=== PATIENT | female | born 1965 | race Caucasian/White ===

== ENCOUNTER 2024-12-14 08:13 | Emergency (ER) | payer OTHER, SELFPAY ==
--- OUTSIDE RECORDS SUMMARY | 2024-11-12 09:00 | XMS_ITS | Encounter Summary ---
Author Organization [place] Address [address] [place] [address] Care Team Providers Care Gas Meter Checker Name Role Phone Lashell Aparicio MD Primary Care Provider [phone] Lashell Aparicio MD Unavailable [phone] Kodi Moody MD Unavailable [phone] Kodi Moody MD Unavailable [phone] Encounter Details Date Type Department Care Team (Late st Contact Info) Description 11/12/2024 9:00 AM [facility] [address] [place] [phone] Hypothyroidism, unspecified type Social History Tobacco Use Types Packs/Day Years Used Date Smoking Tobacco: Former Cigarettes 1.5 35 0 07/28/1984 - 07/27/2019 Smokeless Tobacco: Never Alcohol Use Standard Drinks/Week Comments No 0 (1 standard drink = 0.6 oz pur e alcohol) stopped approx 01/2015 Social Connection and Isolat ion Panel [NHANES] Answer Date Recorded Frequency of Communication w ith Friends and Family Not on file 04/14/2024 How often do you get togethe r with friends or relatives? More than three times a week 04/14/2024 Attends Faith Services Not on file 04/14 Active Member of Clubs or Organizations Not on f ile 04/14/2024 Attends Club or Organization Meetings Not on tiffany e 04/14/2024 Marital Status Not on file 04/14/2024 AUDIT-C Answer Date Recorded Q1: How often do you have a drink containing alc ohol? Monthly or less 04/27/2023 Q2: How many drinks containi ng alcohol do you have on a typical day when you are drinking? 1 or 2 04/27/2023 Q3: How often do you have si x or more drinks on one occasion? Less than monthly 04/27/2023 PHQ-2 Answer Date Recorded PHQ-2 Score 2 04/14/2024 [facility] - Occupational Stress Questionnaire Answer Date Recorded Do you feel stress - tense, restless, nervous, or anxious, or unable to sleep at night because your mind is troubled all the time - these days? Rather much 04/14/2024 Exercise Vital Sign Answer Date Recorde d On average, how many days pe r week do you engage in moderate to strenuous exercise (like a brisk walk)? 0 days 04/14/2024 On average, how many minutes do you engage in exercise at this level? 0 min 04/14/2024 Adolescent Education Answer Date Record ed Getting School Help Needed Not on file 04/26 Food Insecurity Answer Date Recorded Within the past 12 months, d id you worry that your food would run out before you got money to buy more? No 04/14/2024 Within the past 12 months, d id the food you bought just not last and you didn t have money to get more? No 04/14/2024 Housing Stability Answer Date Recorded Do you have housing? (Housin g is defined as stable permanent housing and does not include staying outside in a car, in a tent, in an abandoned building, in an overnight nursing home, or couch-surfing.) Yes 04/14/2024 Are you worried about losing your housing? No 04/14/2024 Financial Resource Strain Answer Date R ecorded Within the past 12 months, h ave you or your family members you live with been unable to get utilities (heat, electricity) when it was really needed? No 04/14/2024 Transportation Needs Answer Date Record ed Within the past 12 months, h as lack of transportation kept you from medical appointments, getting your medicines, non-medical meetings or appointments, work, or from getting things that you need? No 04/14/2024 Interpersonal Safety Answer Date Record ed Do you feel physically and e motionally safe where you currently live? Yes 04/14/2024 Within the past 12 months, h ave you been hit, slapped, kicked or otherwise physically hurt by someone? No 04/14/2024 Within the past 12 months, h ave you been humiliated or emotionally abused in other ways by your partner or ex-partner? 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 Not on file Not on file documented as of this encounter Plan of Treatment Upcoming Encounters Date Type Department Care Team (Late st Contact Info) Description 04/18/2025 4:30 PM CDT Office Visit [facility] [id number] [place] [phone] [place] [id number] [place] [phone] documented as of this encounter Procedures Procedure Name Priority Date/Time Associated Diagnosis Comments TSH Routine 11/12/2024 9:04 AM CDT Hypothyroidism, unspecified type documented in this encounter Results * TSH (11/12/2024 9:04 AM CDT) TSH 2.52 0.30 - 4.20 uIU/mL 11/12/2024 6:46 PM CDT [facility] Blood BLOOD SPECIMEN / Unknown Venipuncture / Unknown 11/12/2024 9:04 AM CDT 11/12/2024 9:04 AM CDT us Lashell Aparicio MD LAB - BLOOD ORDERABLES Final Re sult [facility] [address] [facility] [address], [address] [place] [address] documented in this encounter Visit Diagnoses Diagnosis Hypothyroidism, unspecified type documented in this encounter Additional Health Concerns Assessment Noted Time PHQ-9 Depression Total Score: 9 04/14/20 24 7:49 AM CDT documented as of this encounter Care Teams Gas Meter Checker Relationship Specialty Start [place] [address] [place] [address] PCP - General 11/04/03 [place] [address] [place] [address] Assigned PCP 11/20/14 Kodi Moody MD [address] [address] Cardiovascular Disease 09/25/23 Kodi Moody MD [address] [address] Assigned Heart and Vascular Provider 11/18/23 documented as of this encounter
[2024-12-14 08:29] VITALS: BP 144/82; PULSE 77; RESP 18; TEMP 36.7; O2SAT 94; BMI 42.6
--- NOTE | 2024-12-14 08:31 | ED.WOUNDLAC ---
HPI - Wound/Laceration General Time Seen by Provider: 08:31 Date Seen: 12/14/24 Chief Complaint: Laceration/Wound Stated Complaint: L small finger injury at work Time Seen by Provider: 12/14/24 08:31 Source: patient and RN notes reviewed Mode of arrival: ambulatory Limitations: no limitations History of Present Illness HPI narrative: This 59-year-old female is coming into work from a work comp injury. She accidentally cut her left 5th finger with a ordering box operator at work just prior to arrival. It did bleed but bleeding has been controlled. She denies any numbness or tingling. Her tetanus is up-to-date. Nursing staff did check and she does not need tetanus immunization. This happened just prior to arrival. Place: work Patient tetanus UTD: Yes Context: accidental Related Data Home Medications ?Medication ?Instructions ?Recorded ?Confirmed aspirin 81 mg tablet 81 mg PO DAILY 12/14/24 12/14/24 cyanocobalamin (vitamin B-12) mcg 12/14/24 1,000 mcg/mL injection solution duloxetine 60 mg capsule,delayed 60 mg PO DAILY 12/14/24 12/14/24 release estradiol 0.5 mg tablet 0.5 mg PO DAILY 12/14/24 12/14/24 gabapentin 300 mg capsule 300 mg PO 3XD 12/14/24 12/14/24 levothyroxine 50 mcg tablet 50 mcg PO DAILY 12/14/24 12/14/24 (Synthroid) rosuvastatin 20 mg tablet 20 mg PO QPM 12/14/24 12/14/24 trazodone 150 mg tablet mg PO 12/14/24 Allergies Allergy/AdvReac Type Severity Reaction Status Date / Time No Known Drug Allergies Allergy Verified 12/14/24 08:31 Review of Systems Narrative: As per HPI. Exam Const: Vital Signs, click to edit/add: Vital Signs - 24 hr 12/14/24 08:29 Temperature 98.1 F Pulse Rate [Pulse Oximeter] 77 Respiratory Rate 18 Blood Pressure [Ri ght Upper Arm] 144/82 H Pulse Oximetry 94 Oxygen Delivery Me thod Room Air This 59-year-old female is alert, interactive, no apparent distress. Seen in exam room 1. She has her hand in a glove and the left 5th finger wrapped, this was removed. There is a flap-type laceration overlying the PIP joint of her left 5th finger. She has distal sensation that is intact, normal cap refill. She has full flexion-extension could. She has normal resisted flexion and extension throughout the finger. No loss of motor movement. Wound does gape open with flexion as it is on the dorsal surface. It is curvilinear, about 1 cm. Wound was anesthetize with about 2 mL of 0.25% bupivacaine, total of 3 mL was drawn up. After anesthesia was established, wound was inspected, it is just into the subcutaneous tissue, does not go deeper, no tendon or ligament involvement, no joint capsule penetration. Wound was cleaned with wound cleanser. Standard sterile technique was observed, wound was closed using 5 simple interrupted sutures of 4-0 Ethilon. Patient tolerated this well, no immediate complications, no significant blood loss. Documenting provider has reviewed patient's vital signs: yes Course Course ED Course: Wound was cleaned, inspected and repaired, see above. Vital Signs Vital signs: Initial Vital Signs Temperature 98.1 F 12/14/24 08:29 Temperature Source Temporal Artery Scan 12/14/24 08:29 Pulse Rate 77 12/14/24 08:29 Respiratory Rate 18 12/14/24 08:29 Blood Pressure 144/82 H 12/14/24 08:29 Blood Pressure Mean 102 12/14/24 08:29 Pulse Oximetry 94 12/14/24 08:29 Oxygen Delivery Method Room Air 12/14/24 08:29 Vital Signs Temperature 98.1 F 12/14/24 08:29 Pulse Rate 77 12/14/24 08:29 Respiratory Rate 18 12/14/24 08:29 Blood Pressure 144/82 H 12/14/24 08:29 Pulse Oximetry 94 12/14/24 08:29 Oxygen Delivery Method Room Air 12/14/24 08:29 Temperature 98.1 F 12/14/24 08:29 Pulse Rate 77 12/14/24 08:29 Respiratory Rate 18 12/14/24 08:29 Blood Pressure 144/82 H 12/14/24 08:29 Pulse Oximetry 94 12/14/24 08:29 Oxygen Delivery Method Room Air 12/14/24 08:29 Discharge Plan Discharge Clinical Impression: Finger laceration Qualifiers: Encounter type: initial encounter Finger: little finger Damage to nail status: without damage Foreign body presence: without foreign body Laterality: left Qualified Code(s): S61.217A - Laceration without foreign body of left little finger without damage to nail, initial encounter Patient Disposition: Home, Self-Care Condition: Stable Instructions: Finger Laceration (ED) Additional Instructions: Can remove initial bandaging tonight. Can use splint to help keep finger straight for at least the next few days, this will help take tension off the wound. When able to, can elevate and ice for swelling. Can use Tylenol and ibuprofen per bottle directions as needed for pain management. May wash your hands and shower but should otherwise keep this wound clean and dry until suture removal. Need to schedule a clinic follow-up or can return to Urgent Care potentially to assess wound for suture removal in about 10 days. If there is concern for infection, please seek re-evaluation. Can use bandages and bacitracin for dressing of this wound. Change bandages at least twice a day or more often if needed. Work medical status report filled out and completed. Activity Level: Activity as Tolerated Prescriptions: No Action levothyroxine [Synthroid] 50 mcg tablet 50 mcg PO DAILY cyanocobalamin (vitamin B-12) 1,000 mcg/mL solution Patient Comments: [NO ORIGINAL SIG] trazodone 150 mg tablet PO gabapentin 300 mg capsule 300 mg PO 3XD estradiol 0.5 mg tablet 0.5 mg PO DAILY rosuvastatin 20 mg tablet 20 mg PO QPM duloxetine 60 mg capsule,delayed release(DR/EC) 60 mg PO DAILY aspirin 81 mg tablet 81 mg PO DAILY Stand Alone Forms: [employer] Info Instructions
--- OUTSIDE RECORDS SUMMARY | 2024-12-14 09:31 | XMS_ITS | Clinical Summary ---
Author Organization [facility] Address [address] [place] [address] Care Team Providers Care Associate Project Manager Name Role Phone Pcp, No Primary Care Provider Unavailabl e Allergies No known active allergies Medications diltiazem CD (CARDIZEM CD) 240 mg extended release 24 hr capsule Take 1 capsule by mouth once daily. 0 06/16/2017 Active sertraline (ZOLOFT) 100 mg tablet Take 1 tablet by mouth once daily. 0 06/16/2017 Active traZODone (DESYREL) 150 mg tablet Take 1 tablet by mouth at bedtime. 0 06/16/2017 Active levothyroxine (SYNTHROID) 25 mcg tablet Take 1 tablet by mouth before breakfast. 0 06/16/2017 Active gabapentin (NEURONTIN) 300 mg capsule TAKE 3 CAPS BY MOUTH 3XDAILY INCREASE BY 1 CAP(300 MG) EVERY 5 DAYS TO A GOAL DOSE OF 900MG 3XDAILY. 02/05/2020 Active Active Problems Problem Noted Date Diagnosed Date Hyperopia of both eyes with astigmatism and pres byopia 03/01/2020 Social History Tobacco Use Types Packs/Day Years Used Date Smoking Tobacco: Every Day Cigarettes Alcohol Use Standard Drinks/Week Comments Not Asked 0 (1 standard drink = 0.6 oz pur e alcohol) Comments No Sex and Gender Information Value Date Recorded Sex Assigned at Not on file Legal Sex Female 7:03 AM DISC RULER OPERATOR Gender Identity Not on file Sexual Orientation Not on file Obstetrics History Last Filed Vital Signs Vital Sign Reading Time Taken Comments Blood Pressure 113/67 06/16/2017 8:33 AM DISC RULER OPERATOR Pulse 75 06/16/2017 8:33 AM DISC RULER OPERATOR Temperature - - Respiratory Rate - - Oxygen Saturation - - Inhaled Oxygen Concentration - - Weight - - Height - - Body Mass Index - - Plan of Treatment Health Maintenance Due Date Last Done Comments Tdap 1978 Depression screening for age 12+ 1979 HIV for age 15-65 1982 BMI (ht and wt on same day) for age 18+ 1985 Hepatitis C screening for age 18-79 1985 Tetanus booster 1987 Pap test for age 21-65 1988 Colonoscopy through age 75 2012 Lipids for age 45-75 2012 Mammogram for age 45-75 2012 Pneumococcal series for age 50+ (1 of 1 - PCV) 2017 Zoster (shingles) series for age 50+ (1 of 2) 2017 COVID-19 vaccine series ( season) 2024 04/30/2023, 11/11/2020, 10/21/2020 Influenza Vaccine (Season Ended) 2025 Insurance [facility] Care Teams Associate Project Manager Relationship Specialty Start Date End Date Pcp, No . PCP - General 03/19/11
--- OUTSIDE RECORDS SUMMARY | 2024-12-14 09:32 | XMS_ITS | Encounter Summary ---
Author Organization [place] Address [address] [place] [address] Care Team Providers Care Community Organization Worker Name Role Phone Lashell Aparicio MD Primary Care Provider [phone] Lashell Aparicio MD Unavailable [phone] Kodi Moody MD Unavailable Kodi Moody MD Unavailable [phone] Donita Freire LIQUOR RECTIFIER Unavailable [phone] Encounter Details Date Type Department Care Team (Late st Contact Info) Description 05/14/[address] [facility] Medical Advice [facility] [address] [phone] Nabila Mason, RN Social History Tobacco Use Types Packs/Day Years [...] than three times a week 04/14/2024 Attends Jainism Services Not on file 04/14 Active Member [...] Answer Date Recorded PHQ-2 Score 2 04/14/2024 [facility] - Occupational Stress Questionnaire Answer Date Recorded [...] Answer Date Recorded Do you have housing? 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 [address] [place] [phone] [place] [id number] [place] [address] [phone] documented as of this encounter Visit Diagnoses Not on filedocumented in this encounter Additional Health Concerns Assessment Noted Time PHQ-9 Depression Total Score: 9 04/14/20 24 7:49 AM CDT documented as of this encounter Care Teams Community Organization Worker Relationship Specialty Start Date [place] [address] [place] [address] PCP - General 11/04/03 [place] [address] [place] [address] Assigned PCP 11/20/14 Kodi Moody MD [address] [address] Cardiovascular Disease 09/25/23 Kodi Moody MD [address] [address] Assigned Heart and Vascular Provider 11/18/23 Donita Freire, [facility] [address] [facility] [place] [address] Assigned Behavioral Health Provider 11/18/23 09/18/24 documented as of this encounter
--- OUTSIDE RECORDS SUMMARY | 2024-12-14 09:32 | XMS_ITS | Encounter Summary ---
Author Organization [facility] Address [address] [place] [address] Care Team Providers Care Trucking Contractor Name Role Phone Lashell Aparicio MD Primary Care Provider [phone] Lashell Aparicio MD Unavailable [phone] Brittany Gibbons RN Unavailable Unavailable Hardik Beckham DPM Unavailable [phone] Izabela Cody RN Unavailable Unavailable Hardik Beckham DPM Unavailable [phone] Carmen Kauffman MD Unavailable Anabelle Ram RN Unavailable Unavailable Kodi Moody MD Unavailable [phone] Kodi Moody MD Unavailable [phone] Donita FreireSW Unavailable [phone] Encounter Details Date Type Department Care Team (Late st Contact Info) Description 01/19/2020 [facility] Medical Advice [address] [phone] Brittany Gibbons, RN Social History Tobacco Use Types Packs/Day Years Used Date Smoking Tobacco: Every Day Cigarettes 0.3 18 Smokeless Tobacco: Never Comments:started in 1985 - d own to 4 daily Alcohol Use Standard Drinks/Week Comments No 0 (1 standard drink = 0.6 oz pur e alcohol) stopped approx 01/2015 PHQ-2 Answer Date Recorded PHQ-2 Score 2 01/21/2020 Comments No Sex and Gender Information Value Date Recorded Sex Assigned at Female 06/26/2021 10:10 AM VISUAL COORDINATOR Legal Sex Female 3:45 AM VISUAL COORDINATOR Gender Identity Female 06/26/2021 10:10 AM VISUAL COORDINATOR Sexual Orientation Straight 06/26/2021 10 :10 AM VISUAL COORDINATOR 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 No / Unsure 01/21/2020 1:50 PM CDT documented as of this encounter Plan of Treatment Upcoming Encounters Date Type Department Care Team (Late st Contact Info) Description 04/18/2025 4:30 PM CDT Office Visit [facility] [address] [place] [phone] [place] [id number] [place] [address] documented as of this encounter Visit Diagnoses Not on filedocumented in this encounter Additional Health Concerns Assessment Noted Time PHQ-9 Depression Total Score: 19 020 9:01 AM CDT documented as of this encounter Care Teams Trucking Contractor Relationship Specialty Start Date [place] [id number] [place] [address] PCP - General 11/04/03 Lashell Aparicio [place] [id number] [place] [address] Assigned PCP 11/20/14 Brittany Gibbons, [place] Personal Advocate & Liaison (PAL) Nurse 11/29/20 08/02/21 Hardik Beckham DPM [address] [address] Assigned Musculoskeletal Provider 07/08/21 08/30/22 Izabela Cody, RN Personal Advocate & Liaison (PAL) Family Medicine 04/12/22 09/23/23 Hardik Beckham DPM [address] [facility] [address] [place] [address] Assigned Surgical Provider 08/31/22 12/27/22 Carmen Kauffman MD ORTHOPAEDIC SURGERY [address] [place] [address] Assigned Musculoskeletal Provider 09/07/22 03/18/24 Anabelle Ram RN Personal Advocate & Liaison (PAL) Nurse 09/24/23 11/25/23 Kodi Moody MD [address] [address] Cardiovascular Disease 09/25/23 Kodi Moody MD [address] [address] Assigned Heart and Vascular Provider 11/18/23 Donita Freire, [facility] [address] [place] [address] Assigned Behavioral Health Provider 11/18/23 09/18/24 documented as of this encounter
--- OUTSIDE RECORDS SUMMARY | 2024-12-14 09:32 | XMS_ITS | Encounter Summary ---
Author Organization [place] Address [address] [place] [address] Care Team Providers Care Frame Maker Name Role Phone Lashell Aparicio MD Primary Care Provider [phone] Lashell Aparicio MD Unavailable [phone] Brittany Gibbons RN Unavailable Unavailable Hardik Beckham DPM Unavailable [phone] Izabela Cody RN Unavailable Unavailable Hardik Beckham DPM Unavailable [phone] Carmen Kauffman MD Unavailable Anabelle Ram RN Unavailable Unavailable Kodi Moody MD Unavailable Kodi Moody MD Unavailable [phone] Donita FreireSW Unavailable [phone] Encounter Details Date Type Department Care Team (Latest Contact Info) Description 10/27/2019 Historic Results Social History Tobacco Use Types Packs/Day Years Used Date Smoking Tobacco: Every Day Cigarettes 0.3 18 Smokeless Tobacco: Never Comments:started in 1985 - d own to 4 daily Alcohol Use Standard Drinks/Week Comments No 0 (1 standard drink = 0.6 oz pur e alcohol) stopped approx 01/2015 PHQ-2 Answer Date Recorded PHQ-2 Score 5 10/27/2019 Comments No Sex and Gender Information Value Date Recorded Sex Assigned at Female 06/26/2021 10:10 AM STORE LOSS PREVENTION MANAGER Legal Sex Female 3:45 AM STORE LOSS PREVENTION MANAGER Gender Identity Female 06/26/2021 10:10 AM STORE LOSS PREVENTION MANAGER Sexual Orientation Straight 06/26/2021 10 :10 AM STORE LOSS PREVENTION MANAGER 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 No / Unsure 10/27/2019 8:55 AM CDT documented as of this encounter Plan of Treatment Upcoming Encounters Date Type Department Care Team (Late st Contact Info) Description 04/18/2025 4:30 PM CDT [facility] [address] [place] [phone] Lashell [place]paricio [place] [id number] [place] [address] documented as of this encounter Visit Diagnoses Not on filedocumented in this encounter Additional Health Concerns Assessment Noted Time PHQ-9 Depression Total Score: 19 020 9:01 AM CDT documented as of this encounter Care Teams Frame Maker Relationship Specialty Start Date End Date [place]hell [place] [id number] [place] [address] PCP - General 11/04/03 [place] [address] [place] [address] Assigned PCP 11/20/14 Brittany Gibbons RN Personal Advocate & Liaison (PAL) Nurse 11/29/20 08/02/21 Hardik Beckham DPM [address] [facility] [address] [place] [address] Assigned Musculoskeletal Provider 07/08/21 08/30/22 Izabela Cody RN Personal Advocate & Liaison (PAL) Family Medicine 04/12/22 09/23/23 Hardik Beckham DPM [address] [facility] [address] [place] [address] Assigned Surgical Provider 08/31/22 12/27/22 Carmen Kauffman MD ORTHOPAEDIC SURGERY [address] [id number] Assigned Musculoskeletal Provider 09/07/22 03/18/24 Anabelle Ram RN Personal Advocate & Liaison (PAL) Nurse 09/24/23 11/25/23 Kodi Moody MD [address] [address] Cardiovascular Disease 09/25/23 Kodi Moody MD [address] [address] Assigned Heart and Vascular Provider 11/18/23 Donita Freire, [facility] [address] [place] [address] Assigned Behavioral Health Provider 11/18/23 09/18/24 documented as of this encounter
--- OUTSIDE RECORDS SUMMARY | 2024-12-14 09:32 | XMS_ITS | Encounter Summary ---
Author Organization [place] Address [address] [place] [address] Care Team Providers Care Histopath Tech Name Role Phone Lashell Aparicio MD Primary Care Provider Lashell Aparicio MD Unavailable [phone] Carmen Kauffman MD Unavailable Anabelle Ram RN Unavailable Unavailable Kodi Moody MD Unavailable [phone] Kodi Moody MD Unavailable [phone] Donita Freire Unavailable Reason for Visit * Reason Onset Date Comments Call to schedule test 11/10/2023 Exercise S tress Echocardiogram Encounter Details Date Type Department Care Team (Late st Contact Info) Description 11/10/2023 Telephone [facility] [address] [place] [address] Kodi Moody MD [address] [facility] [place] [id number] Call to schedule test (Exercise Stress Echocardiogram) Social History Tobacco Use Types Packs/Day Years [...] than three times a week 04/14/2024 Attends Sikhism Services Not on file 04/14 Active Member [...] Answer Date Recorded PHQ-2 Score 2 04/14/2024 [facility] - Occupational Stress [...] in an abandoned building, in an overnight custodial, or couch-surfing.) Yes 04/14/2024 Are you worried [...] Sex Assigned at Female 06/26/2021 10:10 AM OIL PUMPER Legal Sex Female 3:45 AM OIL PUMPER Gender Identity Female 06/26/2021 10:10 AM OIL PUMPER Sexual Orientation Straight 06/26/2021 10 :10 AM OIL PUMPER 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 Please call patient back to further coordinate. Action Taken: Other: Cardiology Travel Screening: Not Applicable Thank you! [facility] documented in this encounter Plan of Treatment Upcoming Encounters Date Type Department Care Team (Late st Contact Info) Description 04/18/2025 4:30 PM CDT Office Visit [facility] [id number] [place] [phone] Lashell Aparicio MD [address] [place] [address] documented as of this encounter Visit Diagnoses Not on filedocumented in this encounter Additional Health Concerns Assessment Noted Time PHQ-9 Depression Total Score: 5 03/02/20 23 7:28 PM CDT documented as of this encounter Care Teams Histopath Tech Relationship Specialty Start [place] [address] [place], [place] [phone] PCP - General 11/04/03 [place] [address] [place], [place] [phone] Assigned PCP 11/20/14 Carmen Kauffman MD ORTHOPAEDIC SURGERY [address] [place] [address] Assigned Musculoskeletal Provider 09/07/22 03/18/24 YoAnabelle RN Personal Advocate & Liaison (PAL) Nurse 09/24/23 11/25/23 Kodi Moody MD [address] [address] Cardiovascular Disease 09/25/23 Kodi Moody MD [address] [address] Assigned Heart and Vascular Provider 11/18/23 Donita Freire [facility] [address] [place] [address] Assigned Behavioral Health Provider 11/18/23 09/18/24 documented as of this encounter
--- OUTSIDE RECORDS SUMMARY | 2024-12-14 09:32 | XMS_ITS | Encounter Summary ---
Author Organization [place] Address [address] [place] [address] Care Team Providers Care Bricklayer Supervisor Name Role Phone Lashell Aparicio MD Primary Care Provider [phone] Lashell Aparicio MD Unavailable [phone] Carmen Kauffman MD Unavailable Kodi Moody MD Unavailable [phone] Kodi Moody MD Unavailable [phone] Donita FreireSW Unavailable [phone] Encounter Details Date Type Department Care Team (Late st Contact Info) Description 01/05/2024 [facility] Medical Advice [address] [address] Arleen Su CMA Social History Tobacco Use Types Packs/Day Years Used Date Smoking Tobacco: Former Cigarettes 1.5 35 0 07/28/1984 - 07/27/2019 Smokeless Tobacco: Never Alcohol Use Standard Drinks/Week Comments No 0 (1 standard drink = 0.6 oz pur e alcohol) stopped approx 01/2015 Social Connection and Isolat ion Panel [NHANES] Answer Date Recorded In a typical week, how many times do you talk on the phone with family, friends, or neighbors? Three times a week 04/27/2023 How often do you get togethe r with friends or relatives? More than three times a week 04/27/2023 How often do you attend [facility] or yarsani services? Never 04/27/2023 Do you belong to any clubs o r organizations such as orthodoxy groups, unions, fraternal or athletic groups, or school groups? No 04/27/2023 How often do you attend meet ings of the clubs or organizations you belong to? Never 04/27/2023 Are you , , di vorced, , never , or living with a partner? 04/27/2023 AUDIT-C Answer Date Recorded Q1: How often [...] PHQ-2 Answer Date Recorded PHQ-2 Score 2 03/03/2023 [facility] - Occupational Stress Questionnaire Answer Date Recorded Do you feel stress - tense, restless, nervous, or anxious, or unable to sleep at night because your mind is troubled all the time - these days? To some extent 04/27/2023 Exercise Vital Sign Answer Date Recorde d On average, how many days pe r week do you engage in moderate to strenuous exercise (like a brisk walk)? 1 day 04/27/2023 On average, how many minutes do you engage in exercise at this level? 10 min 04/27/2023 Adolescent Education Answer Date Record ed Getting School Help Needed Not on file 04/26 Food Insecurity Answer Date Recorded Within the past 12 months, d id you worry that your food would run out before you got money to buy more? No 04/27/2023 Within the past 12 months, d id the food you bought just not last and you didn t have money to get more? No 04/27/2023 Housing Stability Answer Date Recorded Do you have housing? (Braeden g is defined as stable permanent housing and does not include staying outside in a car, in a tent, in an abandoned building, in an overnight assisted, or couch-surfing.) Yes 04/27/2023 Are you worried about losing your housing? No 04/27/2023 Financial Resource Strain Answer Date R ecorded Within the past 12 months, h ave you or your family members you live with been unable to get utilities (heat, electricity) when it was really needed? No 04/27/2023 Transportation Needs Answer Date Record ed Within the past 12 months, h as lack of transportation kept you from medical appointments, getting your medicines, non-medical meetings or appointments, work, or from getting things that you need? No 04/27/2023 Interpersonal Safety Answer Date Record ed Do you feel physically and e motionally safe where you currently live? Yes 04/30/2023 Within the past 12 months, h ave you been hit, slapped, kicked or otherwise physically hurt by someone? No 04/30/2023 Within the past 12 months, h ave you been humiliated or emotionally abused in other ways by your partner or ex-partner? 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 Not on file Not on file documented as of this encounter Plan of Treatment Upcoming Encounters Date Type Department Care Team (Late st Contact Info) Description 04/18/2025 4:30 PM CDT Office Visit [facility] [address] [place] [phone] [place] [id number] [place] [address] documented as of this encounter Visit Diagnoses Not on filedocumented in this encounter Additional Health Concerns Assessment Noted Time PHQ-9 Depression Total Score: 5 03/02/20 23 7:28 PM CDT documented as of this encounter Care Teams Bricklayer Supervisor Relationship Specialty Start [place] [id number] [place] [address] PCP - General 11/04/03 [place] [address] [place] [address] Assigned PCP 11/20/14 Carmen Kauffman MD ORTHOPAEDIC SURGERY [address] [place] [address] [id number] Assigned Musculoskeletal Provider 09/07/22 03/18/24 Kodi Moody MD [address] [address] Cardiovascular Disease 09/25/23 Kodi Moody MD [address] [address] Assigned Heart and Vascular Provider 11/18/23 Donita Freire, [facility] [address] [place] [address] Assigned Behavioral Health Provider 11/18/23 09/18/24 documented as of this encounter
--- OUTSIDE RECORDS SUMMARY | 2024-12-14 09:32 | XMS_ITS | Encounter Summary ---
Author Organization [place] Address [address] [place] [address]. [place] [address] Care Team Providers Care Electric Switch Repairer Name Role Phone Lashell Aparicio MD Primary Care Provider [phone] Lashell Aparicio MD Unavailable [phone] Kodi Moody MD Unavailable Kodi Moody MD Unavailable Reason for Visit * Reason Comments Medication Refill Encounter Details Date Type Department Care Team (Late st Contact Info) Description 11/08/2024 Refill [facility] [address] [place] [phone] [place] [address] [place] [address] Medication Refill Social History Tobacco Use Types Packs/Day Years [...] than three times a week 04/14/2024 Attends Mosque Services Not on file 04/14 Active Member [...] Answer Date Recorded PHQ-2 Score 2 04/14/2024 [facility]at ional [facility] - [...] in an abandoned building, in an overnight fpc, or couch-surfing.) Yes 04/14/2024 Are you worried [...] Sex Assigned at Female 06/26/2021 10:10 AM KNIFE SHARPENER Legal Sex Female 3:45 AM KNIFE SHARPENER Gender Identity Female 06/26/2021 10:10 AM KNIFE SHARPENER Sexual Orientation Straight 06/26/2021 10 :10 AM KNIFE SHARPENER 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 documented in this encounter Plan of Treatment Upcoming Encounters Date Type Department Care Team (Late st Contact Info) Description 04/18/2025 4:30 PM CDT Office Visit [facility] [address] [place] [phone] Lashell [place]paricio [place] [id number] [place] [address] documented as of this encounter Visit Diagnoses Diagnosis Hypothyroidism, unspecified type documented in this encounter Additional Health Concerns Assessment Noted Time PHQ-9 Depression Total Score: 9 04/14/20 24 7:49 AM CDT documented as of this encounter Care Teams Electric Switch Repairer Relationship Specialty Start Date [place] [id number] [place] [address] PCP - General 11/04/03 [place] [address] [place] [address] Assigned PCP 11/20/14 Kodi Moody MD [address] [address] Cardiovascular Disease 09/25/23 Kodi Moody MD [address] [address] Assigned Heart and Vascular Provider 11/18/23 documented as of this encounter
--- OUTSIDE RECORDS SUMMARY | 2024-12-14 09:32 | XMS_ITS | Encounter Summary ---
Author Organization [place] Address [address] [place] [address] Care Team Providers Care Legal Operations Manager Name Role Phone Lashell Aparicio MD Primary Care Provider Lashell Aparicio MD Unavailable [phone] Carmen Kauffman MD Unavailable Anabelle Ram RN Unavailable Unavailable Kodi Moody MD Unavailable Kodi Moody MD Unavailable [phone] Donita Freire Unavailable Encounter Details Date Type Department Care Team (Late st Contact Info) Description 11/10/2023 [facility] Medical Advice [facility] [address] [place] [address] Magdalena Woodard RN Social History Tobacco Use Types Packs/Day [...] week 04/27/2023 How often do you attend chur ch or scientology services? Never 04/27/2023 Do you belong to any clubs o r organizations such as rastafarian groups, unions, fraternal or athletic groups, or [...] Answer Date Recorded PHQ-2 Score 2 03/03/2023 [facility] Occupat ional Health - Occupational Stress [...] in an abandoned building, in an overnight long term, or couch-surfing.) Yes 04/27/2023 Are you worried [...] Sex Assigned at Female 06/26/2021 10:10 AM RULING MACHINE SET UP OPERATOR Legal Sex Female 3:45 AM RULING MACHINE SET UP OPERATOR Gender Identity Female 06/26/2021 10:10 AM RULING MACHINE SET UP OPERATOR Sexual Orientation Straight 06/26/2021 10 :10 AM RULING MACHINE SET UP OPERATOR 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 Not on file Not on file documented as of this encounter Plan of Treatment Upcoming Encounters Date Type Department Care Team (Late st Contact Info) Description 04/18/2025 4:30 PM CDT Office Visit [facility] [address] [place] [phone] [place] [address] [place] [address] documented as of this encounter Visit Diagnoses Not on filedocumented in this encounter Additional Health Concerns Assessment Noted Time PHQ-9 Depression Total Score: 5 03/02/20 23 7:28 PM CDT documented as of this encounter Care Teams Legal Operations Manager Relationship Specialty Start Date End [place] [id number] [place] [address] [phone] PCP - General 11/04/03 [place] [address] [place], [place] [phone] Assigned PCP 11/20/14 Carmen Kauffman MD ORTHOPAEDIC SURGERY [address] [place] [address]484 Assigned Musculoskeletal Provider 09/07/22 03/18/24 Anabelle Ram RN Personal Advocate & Liaison (PAL) Nurse 09/24/23 11/25/23 Kodi Moody MD [address] [address] Cardiovascular Disease 09/25/23 Kodi Moody MD [address] [address] Assigned Heart and Vascular Provider 11/18/23 Donita Freire, [facility] [address] [place] [address] Assigned Behavioral Health Provider 11/18/23 09/18/24 documented as of this encounter
--- OUTSIDE RECORDS SUMMARY | 2024-12-14 09:32 | XMS_ITS | Encounter Summary ---
Author Organization [place] Address [address] [place] [address] Care Team Providers Care Android Ui Developer Name Role Phone Lashell Aparicio MD Primary Care Provider [phone] Lashell Aparicio MD Unavailable [phone] Kodi Moody MD Unavailable [phone] Kodi Moody MD Unavailable [phone] Donita Freire ONLINE MARKETING MANAGER Unavailable [phone] Encounter Details Date Type Department Care Team (Late st Contact Info) Description 07/15/2024 [facility] Medical Advice [address] [phone] Tracey De Guzman MA Social History Tobacco Use Types Packs/Day Years [...] than three times a week 04/14/2024 Attends [employer] Not on file 04/14 Active Member [...] Answer Date Recorded PHQ-2 Score 2 04/14/2024 [facility] ional Health - Occupational [...] in an abandoned building, in an overnight half-way, or couch-surfing.) Yes 04/14/2024 Are you worried [...] Sex Assigned at Female 06/26/2021 10:10 AM SUPERVISOR IN CHARGE Legal Sex Female 3:45 AM SUPERVISOR IN CHARGE Gender Identity Female 06/26/2021 10:10 AM SUPERVISOR IN CHARGE Sexual Orientation Straight 06/26/2021 10 :10 AM SUPERVISOR IN CHARGE 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 Not on file Not on file documented as of this encounter Plan of Treatment Upcoming Encounters Date Type Department Care Team (Late st Contact Info) Description 04/18/2025 4:30 PM CDT Office Visit [facility] [address] [place] [phone] [place] [address] [place] [address] documented as of this encounter Visit Diagnoses Not on filedocumented in this encounter Additional Health Concerns Assessment Noted Time PHQ-9 Depression Total Score: 9 04/14/20 24 7:49 AM CDT documented as of this encounter Care Teams Android Ui Developer Relationship Specialty Start Date End Date [place]hell [place]icio [place] [id number] [place] [address] PCP - General 11/04/03 Lashell [place]paricio [place] [address] [place] [address] Assigned PCP 11/20/14 Kodi Moody MD [address] [address] Cardiovascular Disease 09/25/23 Kodi Moody MD [address] [address] Assigned Heart and Vascular Provider 11/18/23 Donita Freire, [facility] [address] [facility] [place] [address] Assigned Behavioral Health Provider 11/18/23 09/18/24 documented as of this encounter
--- OUTSIDE RECORDS SUMMARY | 2024-12-14 09:32 | XMS_ITS | Encounter Summary ---
Author Organization [place] Address [address] [place] [address]. [place] [address] Care Team Providers Care Pet Counselor Name Role Phone Lashell Aparicio MD Primary Care Provider [phone] Lashell Aparicio MD Unavailable Brittany Gibbons RN Unavailable Unavailable Hardik Beckham DPM Unavailable [phone] Izabela Cody RN Unavailable Unavailable Hardik Beckham DPM Unavailable [phone] Carmen Kauffman MD Unavailable Anabelle Ram RN Unavailable Unavailable Kodi Moody MD Unavailable Kodi Moody MD Unavailable [phone] Donita FreireSW Unavailable Reason for Visit * Reason Comments Medication Refill Encounter Details Date Type Department Care Team (Late st Contact Info) Description 05/30/2020 Refill [facility] [address] [place] [phone] [place] [address] [place], [place] [phone] Medication Refill Social History Tobacco Use Types Packs/Day Years Used Date Smoking Tobacco: Every Day Cigarettes 0.3 18 Smokeless Tobacco: Never Comments:started in 1985 - d own to 4 daily Alcohol Use Standard Drinks/Week Comments No 0 (1 standard drink = 0.6 oz pur e alcohol) stopped approx 01/2015 PHQ-2 Answer Date Recorded PHQ-2 Score 0 04/11/2020 Comments No Sex and Gender Information Value Date Recorded Sex Assigned at Female 06/26/2021 10:10 AM AEROSPACE CONTROL AND WARNING SYSTEMS Legal Sex Female 3:45 AM AEROSPACE CONTROL AND WARNING SYSTEMS Gender Identity Female 06/26/2021 10:10 AM AEROSPACE CONTROL AND WARNING SYSTEMS Sexual Orientation Straight 06/26/2021 10 :10 AM AEROSPACE CONTROL AND WARNING SYSTEMS 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 protocol Jackie Lucas RN SPACE CONTROL AND WARNING SYSTEMS documented in this encounter Plan of Treatment Upcoming Encounters Date Type Department Care Team (Late st Contact Info) Description 04/18/2025 4:30 PM CDT Office Visit [facility] [address] [place] [phone] [place]icio [place] [id number] [place] [address] documented as of this encounter Visit Diagnoses Diagnosis S/P gastric bypass Bariatric surgery status documented in this encounter Additional Health Concerns Assessment Noted Time PHQ-9 Depression Total Score: 4 04/12/20 20 7:07 AM CDT documented as of this encounter Care Teams Pet Counselor Relationship Specialty Start Date [place] [id number] [place] [address] [phone] PCP - General 11/04/03 [place] [address] [place] [address] Assigned PCP 11/20/14 Brittany Gibbons, [place] Personal Advocate & Liaison (PAL) Nurse 11/29/20 08/02/21 Hardik Beckham DPM [address] [place] [address] Assigned Musculoskeletal Provider 07/08/21 08/30/22 Izabela Cody RN Personal Advocate & Liaison (PAL) Family Medicine 04/12/22 09/23/23 Hardik Beckham DPM [address] [place] [address] Assigned Surgical Provider 08/31/22 12/27/22 Carmen Kauffman MD ORTHOPAEDIC SURGERY [address] [place] [address] Assigned Musculoskeletal Provider 09/07/22 03/18/24 Anabelle Ram RN Personal Advocate & Liaison (PAL) Nurse 09/24/23 11/25/23 Kodi Moody MD [address] [address] Cardiovascular Disease 09/25/23 Kodi Moody MD [address] [address] Assigned Heart and Vascular Provider 11/18/23 Donita Freire, [facility] [address] [place] [address] Assigned Behavioral Health Provider 11/18/23 09/18/24 documented as of this encounter
--- OUTSIDE RECORDS SUMMARY | 2024-12-14 09:32 | XMS_ITS | Encounter Summary ---
Author Organization [place] Address [address] [place] [address] Care Team Providers Care Clearance Rep Name Role Phone Lashell Aparicio MD Primary Care Provider [phone] Lashell Aparicio MD Unavailable [phone] Carmen Kauffman MD Unavailable [phone] Kodi Moody MD Unavailable [phone] Kodi Moody MD Unavailable [phone] Donita FreireSW Unavailable [phone] Encounter Details Date Type Department Care Team (Late st Contact Info) Description 12/04/2023 [facility] Medical Advice [facility] [place] [id number] [place] [address] Magdalena Woodard RN Social History [...] often do you attend chur ch or uatsdin services? Never 04/27/2023 Do you belong to any clubs o r organizations such as jain groups, unions, fraternal or athletic groups, or [...] Answer Date Recorded PHQ-2 Score 2 03/03/2023 [facility] - Occupational Stress Questionnaire Answer Date Recorded [...] in an abandoned building, in an overnight longterm, or couch-surfing.) Yes 04/27/2023 Are you worried [...] Sex Assigned at Female 06/26/2021 10:10 AM CROP NUTRITION SCIENTIST Legal Sex Female 3:45 AM CROP NUTRITION SCIENTIST Gender Identity Female 06/26/2021 10:10 AM CROP NUTRITION SCIENTIST Sexual Orientation Straight 06/26/2021 10 :10 AM CROP NUTRITION SCIENTIST 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 Not on file Not on file documented as of this encounter Plan of Treatment Upcoming Encounters Date Type Department Care Team (Late st Contact Info) Description 04/18/2025 4:30 PM CDT Office Visit [facility] [address] [place] [phone] [place]icio [place] [address] [place] [address] documented as of this encounter Visit Diagnoses Not on filedocumented in this encounter Additional Health Concerns Assessment Noted Time PHQ-9 Depression Total Score: 5 03/02/20 23 7:28 PM CDT documented as of this encounter Care Teams Clearance Rep Relationship Specialty Start Date End [place] Lashell [place]paricio [place] [id number] [place] [address] PCP - General 11/04/03 [place] [address] [place] [address] Assigned PCP 11/20/14 Carmen Kauffman MD ORTHOPAEDIC SURGERY [address] [place] [address] Assigned Musculoskeletal Provider 09/07/22 03/18/24 Kodi Moody MD [address] [address] Cardiovascular Disease 09/25/23 Kodi Moody MD [address] [address] Assigned Heart and Vascular Provider 11/18/23 Donita Freire, [facility] [address] [place] [address] Assigned Behavioral Health Provider 11/18/23 09/18/24 documented as of this encounter
--- OUTSIDE RECORDS SUMMARY | 2024-12-14 09:32 | XMS_ITS | Encounter Summary ---
Author Organization [place] Address [address] [place] [address]. [place] [address] Care Team Providers Care Casing Man Name Role Phone Lashell Aparicio MD Primary Care Provider [phone] Lashell Aparicio MD Unavailable [phone] Brittany Gibbons RN Unavailable Unavailable Hardik Beckham DPM Unavailable [phone] Izabela Cody RN Unavailable Unavailable Hardik Beckham DPM Unavailable [phone] Carmen Kauffman MD Unavailable Anabelle Ram RN Unavailable Unavailable Kodi Moody MD Unavailable Kodi Moody MD Unavailable Donita FreireSW Unavailable [phone] Reason for Visit * Reason Comments Medication Refill Encounter Details Date Type Department Care Team (Late st Contact Info) Description 01/17/2021 Refill [facility] [id number] [place] [address] [phone] [place] [address] [place], [place] [phone] Medication Refill Social History Tobacco Use Types Packs/Day Years Used Date Smoking Tobacco: Every Day Cigarettes 0.3 18 Smokeless Tobacco: Never Comments:started in 1985 - d own to 4 daily Alcohol Use Standard Drinks/Week Comments No 0 (1 standard drink = 0.6 oz pur e alcohol) stopped approx 01/2015 PHQ-2 Answer Date Recorded PHQ-2 Score 2 11/21/2020 Comments No Sex and Gender Information Value Date Recorded Sex Assigned at Female 06/26/2021 10:10 AM ANIMAL HANDLER Legal Sex Female 3:45 AM ANIMAL HANDLER Gender Identity Female 06/26/2021 10:10 AM ANIMAL HANDLER Sexual Orientation Straight 06/26/2021 10 :10 AM ANIMAL HANDLER 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 Pt states she also needs a refill on trazodone prior to her appt. * Telephone Encounter - Lionel Ann - 01/18/2021 10:29 AM CDT Called no answer,left vm to call back clinic. Lionel Ann on 01/18/2021 at 10:30 AM * Telephone Encounter - Dash Lerma MD - 01/17/2021 3:27 PM CDT Please call, pt needs to be seen. Dash Lerma MD [facility] [phone] * Telephone Encounter - Haley Moore RN - 01/17/2021 2:17 PM CDT Routing refill request to provider for review/approval because: Failed protocol due to PHQ9 score. SUSIE Mondragon, RN [facility] documented in this encounter Plan of Treatment Upcoming Encounters Date Type Department Care Team (Late st Contact Info) Description 04/18/2025 4:30 PM CDT Office Visit [facility] [address] [place] [phone] [place] [address] [place] [address] documented as of this encounter Visit Diagnoses Diagnosis Fibromyalgia Mylagia and myositis, unspecified Major depressive disorder, recurrent episode, moderate (H) Major depressive disorder, recurrent episode, moderate Moderate major depression (H) Major depressive disorder, single episode, moderate documented in this encounter Additional Health Concerns Assessment Noted Time PHQ-9 Depression Total Score: 8 11/30/19 21 10:17 AM CDT documented as of this encounter Care Teams Casing Man Relationship Specialty Start [place] [address] [place] [address] PCP - General 11/04/03 [place] [address] [place] [address] Assigned PCP 11/20/14 Brittany Gibbons, [place] Personal Advocate & Liaison (PAL) Nurse 11/29/20 08/02/21 Hardik Beckham DPM [address] [address] Assigned Musculoskeletal Provider 07/08/21 08/30/22 Izabela Cody, RN Personal Advocate & Liaison (PAL) Family Medicine 04/12/22 09/23/23 Hardik Beckham DPM [address] [facility] [address] [place] [address] Assigned Surgical Provider 08/31/22 12/27/22 Carmen Kauffman MD ORTHOPAEDIC SURGERY [facility] [address] [address] Assigned Musculoskeletal Provider 09/07/22 03/18/24 Anabelle Ram RN Personal Advocate & Liaison (PAL) Nurse 09/24/23 11/25/23 Kodi Moody MD [address] [address] Cardiovascular Disease 09/25/23 Kodi Moody MD [address] [address] Assigned Heart and Vascular Provider 11/18/23 Donita Freire, [facility] [address] [place] [address] Assigned Behavioral Health Provider 11/18/23 09/18/24 documented as of this encounter
--- OUTSIDE RECORDS SUMMARY | 2024-12-14 09:32 | XMS_ITS | Encounter Summary ---
Author Organization [place] Address [address] [place] [address] Care Team Providers Care Green End Department Supervisor Name Role Phone Lashell Aparicio MD Primary Care Provider [phone] Lashell Aparicio MD Unavailable [phone] Kodi Moody MD Unavailable [phone] Kodi Moody MD Unavailable [phone] Encounter Details Date Type Department Care Team (Latest Contact Info) Description 11/12/2024 Travel Social History Tobacco Use Types Packs/Day Years [...] than three times a week 04/14/2024 Attends [employer] Not on file 04/14 Active Member [...] Answer Date Recorded PHQ-2 Score 2 04/14/2024 [facility] [...] in an overnight assisted, or couch-surfing.) Yes 04/14/2024 Are you worried [...] Sex Assigned at Female 06/26/2021 10:10 AM MEETING FACILITATOR Legal Sex Female 3:45 AM MEETING FACILITATOR Gender Identity Female 06/26/2021 10:10 AM MEETING FACILITATOR Sexual Orientation Straight 06/26/2021 10 :10 AM MEETING FACILITATOR 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 Not on file Not on file documented as of this encounter Plan of Treatment Upcoming Encounters Date Type Department Care Team (Late st Contact Info) Description 04/18/2025 4:30 PM CDT Office Visit [address] [phone] Lashell Aparicio MD [address] [place] [address] documented as of this encounter Visit Diagnoses Not on filedocumented in this encounter Additional Health Concerns Assessment Noted Time PHQ-9 Depression Total Score: 9 04/14/20 24 7:49 AM CDT documented as of this encounter Care Teams Green End Department Supervisor Relationship Specialty Start Date [place] [id number] [place] [address] PCP - General 11/04/03 Lashell Aparicio [place] [id number] [place] [address] Assigned PCP 11/20/14 Kodi Moody MD [address] [address] Cardiovascular Disease 09/25/23 Kodi Moody MD [address] [address] Assigned Heart and Vascular Provider 11/18/23 documented as of this encounter
--- OUTSIDE RECORDS SUMMARY | 2024-12-14 09:32 | XMS_ITS | Encounter Summary ---
Author Organization [place] Address [address] [place] [address] Care Team Providers Care Bag Machine Tender Name Role Phone Lashell Aparicio MD Primary Care Provider [phone] Lashell Aparicio MD Unavailable [phone] Kodi Moody MD Unavailable [phone] Kodi Moody MD Unavailable [phone] Donita Freire MANUFACTURERS SERVICE REPRESENTATIVE Unavailable [phone] Encounter Details Date Type Department Care Team (Late st Contact Info) Description 04/05/2024 [facility] Medical Advice [facility] [address] [place] [address] Justino Sebastian Social History Tobacco Use Types Packs/Day Years [...] 04/27/2023 How often do you attend chur or quaker services? Never 04/27/2023 Do you belong to any clubs o r organizations such as amish groups, unions, fraternal or athletic groups, or [...] Answer Date Recorded PHQ-2 Score 2 03/03/2023 [facility] Occupat ional Health [...] in an abandoned building, in an overnight penitentiary, or couch-surfing.) Yes 04/27/2023 Are you worried [...] Sex Assigned at Female 06/26/2021 10:10 AM SPIRITUAL CARE COORDINATOR Legal Sex Female 3:45 AM SPIRITUAL CARE COORDINATOR Gender Identity Female 06/26/2021 10:10 AM SPIRITUAL CARE COORDINATOR Sexual Orientation Straight 06/26/2021 10 :10 AM SPIRITUAL CARE COORDINATOR 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 Not on file Not on file documented as of this encounter Plan of Treatment Upcoming Encounters Date Type Department Care Team (Late st Contact Info) Description 04/18/2025 4:30 PM CDT Office Visit [address] [address] [place] [id number] [place] [address] documented as of this encounter Visit Diagnoses Not on filedocumented in this encounter Additional Health Concerns Assessment Noted Time PHQ-9 Depression Total Score: 5 03/02/20 23 7:28 PM CDT documented as of this encounter Care Teams Bag Machine Tender Relationship Specialty Start Date [place] [id number] [place] [address] PCP - General 11/04/03 [place] [address] [place] [address] Assigned PCP 11/20/14 Kodi Moody MD [address] [address] Cardiovascular Disease 09/25/23 Kodi Moody MD [address] [address] Assigned Heart and Vascular Provider 11/18/23 Donita Freire, [facility] [address] [place] [address] Assigned Behavioral Health Provider 11/18/23 09/18/24 documented as of this encounter
--- OUTSIDE RECORDS SUMMARY | 2024-12-14 09:32 | XMS_ITS | Encounter Summary ---
Author Organization [place] Address [address] [place] [address] Care Team Providers Care Electric System Operator Name Role Phone Lashell Aparicio MD Primary Care Provider [phone] Lashell Aparicio MD Unavailable [phone] Brittany Gibbons RN Unavailable Unavailable Hardik Beckham DPM Unavailable [phone] Izabela Cody RN Unavailable Unavailable Hardik Beckham DPM Unavailable [phone] Carmen Kauffman MD Unavailable [phone] Anabelle Ram RN Unavailable Unavailable Kodi Moody MD Unavailable Kodi Moody MD Unavailable [phone] Donita FreireSW Unavailable [phone] Encounter Details Date Type Department Care Team (Late st Contact Info) Description 11/21/2020 [facility] [address] [address] Suyapa Welch MA Social History Tobacco Use Types Packs/Day [...] Sex Assigned at Female 06/26/2021 10:10 AM NATIONAL INVESTIGATIVE PRODUCER Legal Sex Female 3:45 AM NATIONAL INVESTIGATIVE PRODUCER Gender Identity Female 06/26/2021 10:10 AM NATIONAL INVESTIGATIVE PRODUCER Sexual Orientation Straight 06/26/2021 10 :10 AM NATIONAL INVESTIGATIVE PRODUCER 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 Not on file Not on file documented as of this encounter Plan of Treatment Upcoming Encounters Date Type Department Care Team (Late st Contact Info) Description 04/18/2025 4:30 PM CDT Office Visit [facility] [address] [place] [address] [place] [address] [place] [address] documented as of this encounter Visit Diagnoses Not on filedocumented in this encounter Additional Health Concerns Assessment Noted Time PHQ-9 Depression Total Score: 8 11/23/19 21 7:02 AM CDT documented as of this encounter Care Teams Electric System Operator Relationship Specialty Start [place] [address] [place] [address] PCP - General 11/04/03 [place] [address] [place] [address] Assigned PCP 11/20/14 Brittany Gibbons, [place] Personal Advocate & Liaison (PAL) Nurse 11/29/20 08/02/21 Hardik Beckham DPM [address] [address] Assigned Musculoskeletal Provider 07/08/21 08/30/22 Izabela Cody RN Personal Advocate & Liaison (PAL) Family Medicine 04/12/22 09/23/23 Hardik Beckham DPM [address] [facility] [address] [place] [address] Assigned Surgical Provider 08/31/22 12/27/22 Carmen Kauffman MD ORTHOPAEDIC SURGERY [address] [address] Assigned Musculoskeletal Provider 09/07/22 03/18/24 Anabelle Ram RN Personal Advocate & Liaison (PAL) Nurse 09/24/23 11/25/23 Kodi Moody MD [address] [address] Cardiovascular Disease 09/25/23 Kodi Moody MD [address] [address] Assigned Heart and Vascular Provider 11/18/23 Donita Freire, [facility] [address] [place] [address] Assigned Behavioral Health Provider 11/18/23 09/18/24 documented as of this encounter
--- OUTSIDE RECORDS SUMMARY | 2024-12-14 09:32 | XMS_ITS | Encounter Summary ---
Author Organization [place] Address [address] [place] [address] Care Team Providers Care Rn Integrated Name Role Phone Lashell Aparicio MD Primary Care Provider [phone] Lashell Aparicio MD Unavailable [phone] Brittany Gibbons RN Unavailable Unavailable Hardik Beckham DPM Unavailable [phone] Izabela Cody RN Unavailable Unavailable Hardik Beckham DPM Unavailable [phone] Carmen Kauffman MD Unavailable Anabelle Ram RN Unavailable Unavailable Kodi Moody MD Unavailable Kodi Moody MD Unavailable [phone] Donita FreireSW Unavailable [phone] Encounter Details Date Type Department Care Team (Late st Contact Info) Description 07/14/2020 [facility] Advice [address] [address] Sandra Dey MA Social History Tobacco Use Types Packs/Day [...] Sex Assigned at Female 06/26/2021 10:10 AM CHAIR MENDER Legal Sex Female 3:45 AM CHAIR MENDER Gender Identity Female 06/26/2021 10:10 AM CHAIR MENDER Sexual Orientation Straight 06/26/2021 10 :10 AM CHAIR MENDER 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 Not on file Not on file documented as of this encounter Plan of Treatment Upcoming Encounters Date Type Department Care Team (Late st Contact Info) Description 04/18/2025 4:30 PM CDT Office Visit [facility] [address] [place] [phone] [place] [id number] [place] [address] documented as of this encounter Visit Diagnoses Not on filedocumented in this encounter Additional Health Concerns Assessment Noted Time PHQ-9 Depression Total Score: 4 04/12/20 20 7:07 AM CDT documented as of this encounter Care Teams Rn Integrated Relationship Specialty [place] [address] [place] [address] PCP - General 11/04/03 [place] [address] [place] [address] Assigned PCP 11/20/14 Brittany Gibbons RN Personal Advocate & Liaison (PAL) Nurse 11/29/20 08/02/21 Hardik Beckham DPM [address] [address] Assigned Musculoskeletal Provider 07/08/21 08/30/22 Izabela Cody RN Personal Advocate & Liaison (PAL) Family Medicine 04/12/22 09/23/23 Hardik Beckham DPM [address] [facility] [address] [place] [address] Assigned Surgical Provider 08/31/22 12/27/22 Carmen Kauffman MD ORTHOPAEDIC SURGERY [facility] [address] [address] Assigned Musculoskeletal Provider 09/07/22 03/18/24 Anabelle Ram RN Personal Advocate & Liaison (PAL) Nurse 09/24/23 11/25/23 Kodi Moody MD [address] [address] Cardiovascular Disease 09/25/23 Kodi Moody MD [address] [address] Assigned Heart and Vascular Provider 11/18/23 Donita Freire, [facility] [address] [place] [address] Assigned Behavioral Health Provider 11/18/23 09/18/24 documented as of this encounter
--- OUTSIDE RECORDS SUMMARY | 2024-12-14 09:32 | XMS_ITS | Encounter Summary ---
Author Organization [place] Address [address] [place] [address] Care Team Providers Care Manager Insurance Name Role Phone Lashell Aparicio MD Primary Care Provider [phone] Lashell Aparicio MD Unavailable [phone] Kodi Moody MD Unavailable Kodi Moody MD Unavailable [phone] Donita Freire BENZENE WASHER Unavailable [phone] Encounter Details Date Type Department Care Team (Late st Contact Info) Description 05/14/2024 [facility] [address] [address] Nabila Mason, RN Social History [...] than three times a week 04/14/2024 Attends [employer] Not on file 04/14 Active Member [...] Answer Date Recorded PHQ-2 Score 2 04/14/2024 [facility] Occupat ional Health - Occupational Stress [...] in an abandoned building, in an overnight long-term, or couch-surfing.) Yes 04/14/2024 Are you worried [...] Sex Assigned at Female 06/26/2021 10:10 AM FRUIT VENDOR Legal Sex Female 3:45 AM FRUIT VENDOR Gender Identity Female 06/26/2021 10:10 AM FRUIT VENDOR Sexual Orientation Straight 06/26/2021 10 :10 AM FRUIT VENDOR 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 Not on file Not on file documented as of this encounter Plan of Treatment Upcoming Encounters Date Type Department Care Team (Late st Contact Info) Description 04/18/2025 4:30 PM CDT Office Visit [facility] [address] [place] [address] [place] [id number] [place] [id number] documented as of this encounter Visit Diagnoses Not on filedocumented in this encounter Additional Health Concerns Assessment Noted Time PHQ-9 Depression Total Score: 9 04/14/20 24 7:49 AM CDT documented as of this encounter Care Teams Manager Insurance Relationship Specialty Start Date [place] [id number] [place] [address] PCP - General 11/04/03 [place] [address] [place] [address] Assigned PCP 11/20/14 Kodi Moody MD [address] [address] Cardiovascular Disease 09/25/23 Kdoi Moody MD [address] [address] Assigned Heart and Vascular Provider 11/18/23 Donita Freire, [facility] [address] [facility] [place] [address] Assigned Behavioral Health Provider 11/18/23 09/18/24 documented as of this encounter
--- OUTSIDE RECORDS SUMMARY | 2024-12-14 09:32 | XMS_ITS | Encounter Summary ---
Author Organization [facility] Address [address] [place] [address]. [place] [address] Care Team Providers Care Technical Sales Advisor Name Role Phone Lashell Aparicio MD Primary Care Provider [phone] Lashell Aparicio MD Unavailable [phone] Izabela Cody RN Unavailable Unavailable Carmen Kauffman MD Unavailable [phone] Anabelle Ram RN Unavailable Unavailable Kodi Moody MD Unavailable [phone] Kodi Moody MD Unavailable [phone] Donita Ferire DERMATOLOGY SPECIALIST Unavailable [phone] Encounter Details Date Type Department Care Team (Late st Contact Info) Description 03/03/2023 [facility] [place] [facility] [address] [place] [phone] Donita Freire, DERMATOLOGY SPECIALIST [address] [place] [address] Social History Tobacco Use Types Packs/Day Years Used Date Smoking Tobacco: Former Cigarettes 1 37 0 07/28/1984 - 07/21/2021 Smokeless Tobacco: Never Alcohol Use Standard Drinks/Week Comments No 0 (1 standard drink = 0.6 oz pur e alcohol) stopped approx 01/2015 Social Connection and Isolat ion Panel [NHANES] Answer Date Recorded In a typical week, how many times do you talk on the phone with family, friends, or neighbors? More than three times a week 05/29/2022 How often do you get togethe r with friends or relatives? Three times a week 05/29/2022 How often do you attend chur ch or scientology services? Never 05/29/2022 Do you belong to any clubs o r organizations such as moravian groups, unions, fraternal or athletic groups, or school groups? No 05/29/2022 Attends Club or Organization Meetings Not on tiffany e 05/29/2022 Are you , , di vorced, , never , or living with a partner? 05/29/2022 AUDIT-C Answer Date Recorded Q1: How often do you have a drink containing alc ohol? 2-4 times a month 05/29/2022 Q2: How many drinks containi ng alcohol do you have on a typical day when you are drinking? 3 or 4 05/29/2022 Q3: How often do you have si x or more drinks on one occasion? Never 05/29/2022 Overall Financial Resource Strain (CARDIA) Answe r Date Recorded How hard is it for you to pa y for the very basics like food, housing, medical care, and heating? Not hard at all 05/29/2022 PHQ-2 Answer Date Recorded PHQ-2 Score 2 03/03/2023 [facility] of Occupat ional Health - Occupational Stress Questionnaire Answer Date Recorded Do you feel stress - tense, restless, nervous, or anxious, or unable to sleep at night because your mind is troubled all the time - these days? To some extent 05/29/2022 Exercise Vital Sign Answer Date Recorde d On average, how many days pe r week do you engage in moderate to strenuous exercise (like a brisk walk)? 2 days 05/29/2022 On average, how many minutes do you engage in exercise at this level? 20 min 05/29/2022 Hunger Vital Sign Answer Date Recorded Within the past 12 months, y ou worried that your food would run out before you got the money to buy more. Never true 05/29/20 22 Within the past 12 months, t he food you bought just didn't last and you didn't have money to get more. Never true 05/29/2022 PRAPARE - Transportation Answer Date Re corded In the past 12 months, has l ack of transportation kept you from medical appointments or from getting medications? No 08/2021 In the past 12 months, has l ack of transportation kept you from meetings, work, or from getting things needed for daily living? No 05/29/2022 Housing Stability Vital Sign Answer Jose e Recorded In the last 12 months, was t here a time when you were not able to pay the mortgage or rent on time? No 05/29/2022 In the last 12 months, how many places have you lived? 1 05/29/2022 In the last 12 months, was t here a time when you did not have a steady place to sleep or slept in a mcfp (including now)? 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 No / Unsure 03/03/2023 3:23 PM CDT documented as of this encounter Functional Status * Actual/Potential Lethality (Most Lethal Attempt) Question Answer Date of Assessment Author Actual Lethality/Medical Damage Code (Most Lethal Attempt) 0 03/03/2023 4:20 PM CDT Donita Freire LICSW Potential Lethality Code (Most Lethal Attempt) 1 03/03/2023 4:20 PM CDT Clara Freire DERMATOLOGY SPECIALIST * Actual/Potential Lethality (Most Recent Attempt) Question Answer Date of Assessment Author Actual Lethality/Medical Damage Code (Most Recent Attempt) 0 03/03/2023 4:20 PM CDT Donita Freire LICSW Potential Lethality Code (Most Recent Attempt) 1 03/03/2023 4:20 PM CDT Clara Freire DERMATOLOGY SPECIALIST * Actual/Potential Lethality (Initial/First Attempt) Question Answer Date of Assessment Author Actual Lethality/Medical Damage Code (Initial/First Attempt) 0 03/03/2023 4:20 PM CDT Freire Donita C, DERMATOLOGY SPECIALIST Potential Lethality Code (Initial/First Attempt) 0 03/03/2023 4:20 PM CDT Freire Michela david C, DERMATOLOGY SPECIALIST * Calculated C-SSRS Risk Score (Lifetime/Recent) Answer Date of Assessment Author Moderate Risk 03/03/2023 4:20 PM CDT FreireSaranyanifer C, DERMATOLOGY SPECIALIST * Suicidal Ideation Question Answer Date of Assessment Author 1. Wish to be (Lifetime) Yes 03/03/2023 4:20 PM CDT Freire, Donita C, DERMATOLOGY SPECIALIST 2. Non-Specific Active Suicidal Thoughts (Lifetime) Yes 03/03/2023 4:20 PM CDT Freire, Donita C, DERMATOLOGY SPECIALIST 3. Active Suicidal Ideation with any Methods (Not Plan) Without Intent to Act (Lifetime) Yes 03/03/2023 4:20 PM CDT Freire, Donita C, DERMATOLOGY SPECIALIST 4. Active Suicidal Ideation with Some Intent to Act, Without Specific Plan (Lifetime) Yes 03/03/2023 4:20 PM CDT Freire Donita C, DERMATOLOGY SPECIALIST 5. Active Suicidal Ideation with Specific Plan and Intent (Lifetime) No 03/03/2023 4:20 PM CDT Freire Donita C, DERMATOLOGY SPECIALIST 1. Wish to be (Past 1 Month) Yes 03/03/2023 4:20 PM CDT Freire, Donita C, DERMATOLOGY SPECIALIST 2. Non-Specific Active Suicidal Thoughts (Past 1 Month) No 03/03/2023 4:20 PM CDT Mouna Donita C, DERMATOLOGY SPECIALIST 3. Active Suicidal Ideation with any Methods (Not Plan) Without Intent to Act (Past 1 Month) No 03/03/2023 4:20 PM CDT Freire Donita C, DERMATOLOGY SPECIALIST 4. Active Suicidal Ideation with Some Intent to Act, Without Specific Plan (Past 1 Month) No 03/03/2023 4:20 PM CDT Freire, Donita C, DERMATOLOGY SPECIALIST * Intensity of Ideation Question Answer Date of Assessment Author Most Severe Ideation Rating (Lifetime) 5 03/03/2023 4:20 PM CDT Mouna Donita C, DERMATOLOGY SPECIALIST Frequency (Lifetime) 3 03/03/2023 4:20 PM C DT Mouna Donita C, DERMATOLOGY SPECIALIST Duration (Lifetime) 1 03/03/2023 4:20 PM CD T Freire, Donita C, DERMATOLOGY SPECIALIST Controllability (Lifetime) 3 03/03/2023 4:2 0 PM CDT Freire, Donita C, DERMATOLOGY SPECIALIST Deterrents (Lifetime) 5 03/03/2023 4:20 PM CDT Freire, Donita C, DERMATOLOGY SPECIALIST Reasons for Ideation (Lifetime) 3 4:20 PM CDT Freire, Donita C, DERMATOLOGY SPECIALIST Most Severe Ideation Rating (Past 1 Month) 3 03/03/2023 4:20 PM CDT Freire, Donita C, DERMATOLOGY SPECIALIST Frequency (Past 1 Month) 2 03/03/2023 4:20 PM CDT Freire, Donita C, DERMATOLOGY SPECIALIST Duration (Past 1 Month) 1 03/03/2023 4:20 P M CDT Freire, Donita C, DERMATOLOGY SPECIALIST Controllability (Past 1 Month) 2 03/03/2023 4:20 PM CDT Freire, Donita C, DERMATOLOGY SPECIALIST Deterrents (Past 1 Month) 1 03/03/2023 4:20 PM CDT Freire, Donita C, DERMATOLOGY SPECIALIST Reasons for Ideation (Past 1 Month) 4 03/03/2023 4:20 PM CDT Freire, Donita C, DERMATOLOGY SPECIALIST * Suicidal Behavior Question Answer Date of Assessment Author Actual Attempt (Lifetime) Yes 03/03/2023 4:20 PM CDT Freire, Donita C, DERMATOLOGY SPECIALIST Total Number of Actual Attempts (Lifetime) 2 03/03/2023 4:20 PM CDT Freire, Donita C, DERMATOLOGY SPECIALIST Has subject engaged in non-suicidal self-injurious behavior? (Lifetime) No 03/03/2023 4:20 PM CDT Freire, Donita C, DERMATOLOGY SPECIALIST Interrupted Attempts (Lifetime) No 03/03/2023 4:20 PM CDT Freire, Donita C, DERMATOLOGY SPECIALIST Aborted or Self-Interrupted Attempt (Lifetime) No 03/03/2023 4:20 PM CDT Freire, Donita C, DERMATOLOGY SPECIALIST Preparatory Acts or Behavior (Lifetime) No 03/03/2023 4:20 PM CDT Freire, Donita C, DERMATOLOGY SPECIALIST Actual Attempt (Past 3 Months) No 03/03/2023 4:20 PM CDT Donita Freire LICSW documented as of this encounter Plan of Treatment Upcoming Encounters Date Type Department Care Team (Late st Contact Info) Description 04/18/2025 4:30 PM CDT Office Visit [facility] [id number] [place] [phone] [place] [id number] [place] [address] documented as of this encounter Visit Diagnoses Not on filedocumented in this encounter Additional Health Concerns Assessment Noted Time PHQ-9 Depression Total Score: 5 03/02/20 23 7:28 PM CDT documented as of this encounter Care Teams Technical Sales Advisor Relationship Specialty Start Date End [place] [id number] [place] [address] PCP - General 11/04/03 Las[place] [id number] [place] [address] Assigned PCP 11/20/14 Izabela Cody RN Personal Advocate & Liaison (PAL) Family Medicine 04/12/22 09/23/23 Carmen Kauffman MD ORTHOPAEDIC SURGERY [address] [place] [address] [id number] Assigned Musculoskeletal Provider 09/07/22 03/18/24 Anabelle Ram RN Personal Advocate & Liaison (PAL) Nurse 09/24/23 11/25/23 Kodi Moody MD [address] [address] Cardiovascular Disease 09/25/23 Kodi Moody MD [address] [place] [address] Assigned Heart and Vascular Provider 11/18/23 Donita Freire, [facility] [address] [place] [address] Assigned Behavioral Health Provider 11/18/23 09/18/24 documented as of this encounter
--- OUTSIDE RECORDS SUMMARY | 2024-12-14 09:32 | XMS_ITS | Encounter Summary ---
Author Organization [facility] Address [address] [place] [address]. [place] [address] Care Team Providers Care Precision Machinist Name Role Phone Lashell Aparicio MD Primary Care Provider Lashell Aparicio MD Unavailable [phone] Brittany Gibbons RN Unavailable Unavailable Hardik Beckham DPM Unavailable [phone] Izabela Coyd RN Unavailable Unavailable Hardik Beckham DPM Unavailable [phone] Carmen Kauffman MD Unavailable Anabelle Ram RN Unavailable Unavailable Kodi Moody MD Unavailable [phone] Kodi Moody MD Unavailable Donita FreireSW Unavailable Reason for Visit * Reason Comments Medication Refill Duloxetine Encounter Details Date Type Department Care Team (Late st Contact Info) Description 10/22/2019 Refill [facility] [address] [place] [phone] [place] [address] [place] [address] Medication Refill (Duloxetine ) Social History Tobacco Use Types Packs/Day Years Used Date Smoking Tobacco: Every Day Cigarettes 0.3 18 Smokeless Tobacco: Never Comments:started in 1985 - d own to 4 daily Alcohol Use Standard Drinks/Week Comments No 0 (1 standard drink = 0.6 oz pur e alcohol) stopped approx 01/2015 PHQ-2 Answer Date Recorded PHQ-2 Score 0 11/21/2018 Comments No Sex and Gender Information Value Date Recorded Sex Assigned at Female 06/26/2021 10:10 AM PLIER WORKER Legal Sex Female 3:45 AM PLIER WORKER Gender Identity Female 06/26/2021 10:10 AM PLIER WORKER Sexual Orientation Straight 06/26/2021 10 :10 AM PLIER WORKER 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 No / Unsure 10/25/2019 3:14 PM CDT documented as of this encounter Miscellaneous Notes * Telephone Encounter - Roxy Coulter MA - 10/22/2019 10:01 AM CDT Called patient and phone visit was set up for 10/27/19. Roxy Coulter CMA * Telephone Encounter - Ledy Balbuena APRN CNP - 10/22/2019 9:14 AM CDT Please call Toyin and let her know that she will need to set up a phone visit prior to getting further refills, once a phone visit is set up let me know and I will refill med. Ledy Smith CNP * Telephone Encounter - Christina Briceno RN - 10/22/2019 8:44 AM CDT Routing refill request to provider for review/approval because: Nelia given x1 and patient did not follow up, please advise PHQ 10/15/2017 11/21/2018 02/03/2019 PHQ-9 Total Score 8 2 0 Q9: Thoughts of better off /self-harm past 2 weeks Not at all Not at all Not at all No upcoming appt scheduled Jarek Cha Nurse [facility] documented in this encounter Plan of Treatment Upcoming Encounters Date Type Department Care Team (Late st Contact Info) Description 04/18/2025 4:30 PM CDT Office Visit [facility] [id number] [place] [phone] [place] [id number] [place] [address] documented as of this encounter Visit Diagnoses Diagnosis Major depressive disorder, recurrent episode, moderate (H) Major depressive disorder, recurrent episode, moderate Anxiety Anxiety state, unspecified documented in this encounter Additional Health Concerns Assessment Noted Time PHQ-9 Depression Total Score: 0 02/04/20 19 9:14 AM CDT documented as of this encounter Care Teams Precision Machinist Relationship Specialty Start [place] [id number] [place] [address] PCP - General 11/04/03 Lashell [place]paricio [place] [id number] [place] [address] Assigned PCP 11/20/14 Brittany Gibbons, [place] Personal Advocate & Liaison (PAL) Nurse 11/29/20 08/02/21 Hardik Beckham DPM [facility] [address] [place] [address] Assigned Musculoskeletal Provider 07/08/21 08/30/22 Izabela Cody RN Personal Advocate & Liaison (PAL) Family Medicine 04/12/22 09/23/23 Hardik Beckham DPM [facility] [address] [address] Assigned Surgical Provider 08/31/22 12/27/22 Carmen Kauffman MD ORTHOPAEDIC SURGERY [address] [address] Assigned Musculoskeletal Provider 09/07/22 03/18/24 Anabelle Ram RN Personal Advocate & Liaison (PAL) Nurse 09/24/23 11/25/23 Kodi Moody MD [address] [address] Cardiovascular Disease 09/25/23 Kodi Moody MD [address] [address] Assigned Heart and Vascular Provider 11/18/23 Donita Freire, [facility] [address] [place] [address] Assigned Behavioral Health Provider 11/18/23 09/18/24 documented as of this encounter
--- OUTSIDE RECORDS SUMMARY | 2024-12-14 09:32 | XMS_ITS | Encounter Summary ---
Author Organization [facility] Address [address] [place] [address] Care Team Providers Care Merchant Tailor Name Role Phone Lashell Aparicio MD Primary Care Provider [phone] Lashell Aparicio MD Unavailable [phone] Carmen Kauffman MD Unavailable [phone] Anabelle Ram RN Unavailable Unavailable Kodi Moody MD Unavailable [phone] Kodi Moody MD Unavailable [phone] Donita Freire Unavailable [phone] Encounter Details Date Type Department Care Team (Late st Contact Info) Description 11/21/2023 [facility] Medical Advice [facility] [address] [place] [address] Trinity Jara Social History Tobacco Use Types Packs/Day Years [...] often do you attend chur ch or episcopal services? 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 Not on file Not on file documented as of this encounter Plan of Treatment Upcoming Encounters Date Type Department Care Team (Late st Contact Info) Description 04/18/2025 4:30 PM CDT Office Visit [facility] [address] [place] [phone] [place] [address] [place] [address] documented as of this encounter Visit Diagnoses Not on filedocumented in this encounter Additional Health Concerns Assessment Noted Time PHQ-9 Depression Total Score: 5 03/02/20 23 7:28 PM CDT documented as of this encounter Care Teams Merchant Tailor Relationship Specialty Start [place] [id number] [place] [address] [phone] PCP - General 11/04/03 [place] [address] [place], [place] [id number] Assigned PCP 11/20/14 Carmen Kauffman MD ORTHOPAEDIC SURGERY [address] [place] [address] [phone] Assigned Musculoskeletal Provider 09/07/22 03/18/24 Anabelle Ram RN Personal Advocate & Liaison (PAL) Nurse 09/24/23 11/25/23 Kodi Moody MD [address] [address] Cardiovascular Disease 09/25/23 Kodi Moody MD [address] [address] Assigned Heart and Vascular Provider 11/18/23 Donita Freire, [facility] [address] [place] [address] Assigned Behavioral Health Provider 11/18/23 09/18/24 documented as of this encounter
--- OUTSIDE RECORDS SUMMARY | 2024-12-14 09:32 | XMS_ITS | Encounter Summary ---
Author Organization [facility] Address [address] [place] [address] Care Team Providers Care Pattern Fitter Name Role Phone Lashell Aparicio MD Primary Care Provider [phone] Lashell Aparicio MD Unavailable [phone] Kodi Moody MD Unavailable [phone] Kodi Moody MD Unavailable Reason for Visit * Reason Onset Date Comments Patient Request 11/19/2024 Change of pharma cy Encounter Details Date Type Department Care Team (Late st Contact Info) Description 11/19/2024 [facility] Medical Advice [address] [phone] Lashell Aparicio MD [address] [place] [address] Patient Request (Change of pharmacy) Social History Tobacco Use Types Packs/Day Years [...] than three times a week 04/14/2024 Attends [employer] Not on file 04/14 Active Member [...] Answer Date Recorded PHQ-2 Score 2 04/14/2024 [facility] of Occupat ional Health - Occupational Stress [...] in an abandoned building, in an overnight skilled nursing, or couch-surfing.) Yes 04/14/2024 Are you worried [...] Sex Assigned at Female 06/26/2021 10:10 AM HAMMER ADJUSTER Legal Sex Female 3:45 AM HAMMER ADJUSTER Gender Identity Female 06/26/2021 10:10 AM HAMMER ADJUSTER Sexual Orientation Straight 06/26/2021 10 :10 AM HAMMER ADJUSTER 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 [address] [place] [phone] [place]hell [place]paricio [place] [id number] [place] [address] documented as of this encounter Visit Diagnoses Not on filedocumented in this encounter Additional Health Concerns Assessment Noted Time PHQ-9 Depression Total Score: 9 04/14/20 24 7:49 AM CDT documented as of this encounter Care Teams Pattern Fitter Relationship Specialty Start Date [place] [id number] [place] [address] [phone] PCP - General 11/04/03 [place] [address] [place] [address] Assigned PCP 11/20/14 Kodi Moody MD [address] [id number] Cardiovascular Disease 09/25/23 Kodi Moody MD [address] [address] Assigned Heart and Vascular Provider 11/18/23 documented as of this encounter
--- OUTSIDE RECORDS SUMMARY | 2024-12-14 09:32 | XMS_ITS | Encounter Summary ---
Author Organization [place] Address [address] [place] [address] Care Team Providers Care Microsoft Crm Developer Name Role Phone Lashell Aparicio MD Primary Care Provider [phone] Lashell Aparicio MD Unavailable [phone] Lashell Aparicio MD Unavailable [phone] Brittany Gibbons RN Unavailable Unavailable Hardik Beckham DPM Unavailable [phone] Izabela Cody RN Unavailable Unavailable Hardik Beckham DPM Unavailable [phone] Carmen Kauffman MD Unavailable Anabelle Ram RN Unavailable Unavailable Kodi Moody MD Unavailable [phone] Kodi Moody MD Unavailable [phone] Donita FreireSW Unavailable [phone] Encounter Details Date Type Department Care Team (Latest Contact Info) Description 03/27/2017 Historic Results Social History Tobacco Use Types Packs/Day Years Used Date Smoking Tobacco: Every Day Cigarettes 1 18 Smokeless Tobacco: Never Comments:started in 1985 Alcohol Use Standard Drinks/Week Comments No 0 (1 standard drink = 0.6 oz pur e alcohol) stopped approx 01/2015 Comments No Sex and Gender Information Value Date Recorded Sex Assigned at Female 06/26/2021 10:10 AM CASH CHECKER Legal Sex Female 3:45 AM CASH CHECKER Gender Identity Female 06/26/2021 10:10 AM CASH CHECKER Sexual Orientation Straight 06/26/2021 10 :10 AM CASH CHECKER 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 Not on file Not on file documented as of this encounter Plan of Treatment Upcoming Encounters Date Type Department Care Team (Late st Contact Info) Description 04/18/2025 4:30 PM CDT Office Visit [facility] [address] [place] [phone] [place]icio [place] [id number] [place] [address] documented as of this encounter Visit Diagnoses Not on filedocumented in this encounter Additional Health Concerns Assessment Noted Time PHQ-9 Depression Total Score: 16 017 11:14 AM CDT documented as of this encounter Care Teams Microsoft Crm Developer Relationship Specialty Start Date End [place]hell [place]icio [place] [id number] [place] [address] PCP - General 11/04/03 Lashell Aparicio MD [address] [place] [address] PCP - Assigned PCP 11/20/14 09/29/18 Lashell Aparicio MD [address] [place] [address] Assigned PCP 11/20/14 Brittany Gibbons, [place] Personal Advocate & Liaison (PAL) Nurse 11/29/20 08/02/21 Hardik Beckham DPM [address] [facility] [address] [place] [address] Assigned Musculoskeletal Provider 07/08/21 08/30/22 Izabela Cody, [place] Personal Advocate & Liaison (PAL) Family Medicine 04/12/22 09/23/23 Hardik Beckham DPM [address] [facility] [address] [place] [address] Assigned Surgical Provider 08/31/22 12/27/22 Carmen Kauffman MD ORTHOPAEDIC SURGERY [address] [place] [address] Assigned Musculoskeletal Provider 09/07/22 03/18/24 Anabelle Ram RN Personal Advocate & Liaison (PAL) Nurse 09/24/23 11/25/23 Kodi Moody MD [address] [address] Cardiovascular Disease 09/25/23 Kodi Moody MD [address] [address] Assigned Heart and Vascular Provider 11/18/23 Donita Freire, [facility] [address] [place] [address] Assigned Behavioral Health Provider 11/18/23 09/18/24 documented as of this encounter
--- OUTSIDE RECORDS SUMMARY | 2024-12-14 09:32 | XMS_ITS | Encounter Summary ---
Author Organization [facility] Address [address] [place] [address] Care Team Providers Care Clay Roaster Name Role Phone Lashell Aparicio MD Primary Care Provider [phone] Lashell Aparicio MD Unavailable Kodi Moody MD Unavailable Kodi Moody MD Unavailable [phone] Donita Freire CULTURE MEDIA LABORATORY ASSISTANT Unavailable [phone] Encounter Details Date Type Department Care Team (Late st Contact Info) Description 05/12/2024 [facility] [place] [facility] [address] [place] [address] Amina Rodriguez Social History Tobacco Use Types Packs/Day Years [...] Answer Date Recorded PHQ-2 Score 2 04/14/2024 [facility] of Occupat ional Health - [...] in an abandoned building, in an overnight snf, or couch-surfing.) Yes 04/14/2024 Are you worried [...] Sex Assigned at Female 06/26/2021 10:10 AM WAREHOUSE ORDER SELECTOR Legal Sex Female 3:45 AM WAREHOUSE ORDER SELECTOR Gender Identity Female 06/26/2021 10:10 AM WAREHOUSE ORDER SELECTOR Sexual Orientation Straight 06/26/2021 10 :10 AM WAREHOUSE ORDER SELECTOR 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 Not on file Not on file documented as of this encounter Plan of Treatment Upcoming Encounters Date Type Department Care Team (Late st Contact Info) Description 04/18/2025 4:30 PM CDT Office Visit [facility] [address] [place] [phone] [place] [id number] [place] [address] [phone] documented as of this encounter Visit Diagnoses Not on filedocumented in this encounter Additional Health Concerns Assessment Noted Time PHQ-9 Depression Total Score: 9 04/14/20 24 7:49 AM CDT documented as of this encounter Care Teams Clay Roaster Relationship Specialty Start Date [place] [id number] [place] [address] PCP - General 11/04/03 [place] [address] [place] [address] Assigned PCP 11/20/14 Kodi Moody MD [address] [address] Cardiovascular Disease 09/25/23 Kodi Moody MD [address] [address] Assigned Heart and Vascular Provider 11/18/23 Donita Freire, [facility] [address] [facility] [place] [address] Assigned Behavioral Health Provider 11/18/23 09/18/24 documented as of this encounter
--- OUTSIDE RECORDS SUMMARY | 2024-12-14 09:32 | XMS_ITS | Encounter Summary ---
Author Organization [facility] Address [address] [place] [address]. [place] [address] Care Team Providers Care Occupational Therapist Per Diem Name Role Phone Lashell Aparicio MD Primary Care Provider [phone] Lashell Aparicio MD Unavailable [phone] Izabela Cody RN Unavailable Unavailable Carmen Kauffman MD Unavailable [phone] Anabelle Ram RN Unavailable Unavailable Kodi Moody MD Unavailable [phone] Kodi Moody MD Unavailable [phone] Donita Freire ARMORED CAR DRIVER Unavailable [phone] Encounter Details Date Type Department Care Team (Late st Contact Info) Description 03/03/2023 [facility] [id number] [place] [phone] Donita Freire, ARMORED CAR DRIVER [address] [place] [address] Social History Tobacco Use Types [...] often do you attend chur ch or zoroastrianism services? Never 05/29/2022 Do you belong to any clubs o r organizations such as restoration groups, unions, fraternal or athletic groups, or [...] Answer Date Recorded PHQ-2 Score 2 03/03/2023 [facility] of Occupat ional Health - Occupational Stress [...] place to sleep or slept in a longterm (including now)? No 05/29/2022 Comments No Sex and Gender Information Value Date Recorded Sex Assigned at Female 06/26/2021 10:10 AM TAX REVENUE OFFICER Legal Sex Female 3:45 AM TAX REVENUE OFFICER Gender Identity Female 06/26/2021 10:10 AM TAX REVENUE OFFICER Sexual Orientation Straight 06/26/2021 10 :10 AM TAX REVENUE OFFICER Occupation Industry Job Start Date Job End [...] 1 03/03/2023 4:20 PM CDT Clara Freire ARMORED CAR DRIVER * Actual/Potential Lethality (Most Recent Attempt) Question Answer Date of Assessment Author Actual Lethality/Medical Damage Code (Most Recent Attempt) 0 03/03/2023 4:20 PM CDT Donita Freire LICSW Potential Lethality Code (Most Recent Attempt) 1 03/03/2023 4:20 PM CDT Clara Freire ARMORED CAR DRIVER * Actual/Potential Lethality (Initial/First Attempt) Question Answer Date of Assessment Author Actual Lethality/Medical Damage Code (Initial/First Attempt) 0 03/03/2023 4:20 PM CDT Freire Donita C, ARMORED CAR DRIVER Potential Lethality Code (Initial/First Attempt) 0 03/03/2023 4:20 PM CDT Freire Michela david C, ARMORED CAR DRIVER * Calculated C-SSRS Risk Score (Lifetime/Recent) Answer Date of Assessment Author Moderate Risk 03/03/2023 4:20 PM CDT FreireSaranyanifer C, ARMORED CAR DRIVER * Suicidal Ideation Question Answer Date of Assessment Author 1. Wish to be (Lifetime) Yes 03/03/2023 4:20 PM CDT Freire, Donita C, ARMORED CAR DRIVER 2. Non-Specific Active Suicidal Thoughts (Lifetime) Yes 03/03/2023 4:20 PM CDT Freire, Donita C, ARMORED CAR DRIVER 3. Active Suicidal Ideation with any Methods (Not Plan) Without Intent to Act (Lifetime) Yes 03/03/2023 4:20 PM CDT Freire, Donita C, ARMORED CAR DRIVER 4. Active Suicidal Ideation with Some Intent to Act, Without Specific Plan (Lifetime) Yes 03/03/2023 4:20 PM CDT Freire Donita C, ARMORED CAR DRIVER 5. Active Suicidal Ideation with Specific Plan and Intent (Lifetime) No 03/03/2023 4:20 PM CDT Freire Donita C, ARMORED CAR DRIVER 1. Wish to be (Past 1 Month) Yes 03/03/2023 4:20 PM CDT Freire, Donita C, ARMORED CAR DRIVER 2. Non-Specific Active Suicidal Thoughts (Past 1 Month) No 03/03/2023 4:20 PM CDT Mouna Donita C, ARMORED CAR DRIVER 3. Active Suicidal Ideation with any Methods (Not Plan) Without Intent to Act (Past 1 Month) No 03/03/2023 4:20 PM CDT Freire Donita C, ARMORED CAR DRIVER 4. Active Suicidal Ideation with Some Intent to Act, Without Specific Plan (Past 1 Month) No 03/03/2023 4:20 PM CDT Freire, Donita C, ARMORED CAR DRIVER * Intensity of Ideation Question Answer Date of Assessment Author Most Severe Ideation Rating (Lifetime) 5 03/03/2023 4:20 PM CDT Mouna Donita C, ARMORED CAR DRIVER Frequency (Lifetime) 3 03/03/2023 4:20 PM C DT Mouna Donita C, ARMORED CAR DRIVER Duration (Lifetime) 1 03/03/2023 4:20 PM CD T Freire, Donita C, ARMORED CAR DRIVER Controllability (Lifetime) 3 03/03/2023 4:2 0 PM CDT Freire, Donita C, ARMORED CAR DRIVER Deterrents (Lifetime) 5 03/03/2023 4:20 PM CDT Freire, Donita C, ARMORED CAR DRIVER Reasons for Ideation (Lifetime) 3 4:20 PM CDT Freire, Donita C, ARMORED CAR DRIVER Most Severe Ideation Rating (Past 1 Month) 3 03/03/2023 4:20 PM CDT Freire, Donita C, ARMORED CAR DRIVER Frequency (Past 1 Month) 2 03/03/2023 4:20 PM CDT Freire, Donita C, ARMORED CAR DRIVER Duration (Past 1 Month) 1 03/03/2023 4:20 P M CDT Freire, Donita C, ARMORED CAR DRIVER Controllability (Past 1 Month) 2 03/03/2023 4:20 PM CDT Freire, Donita C, ARMORED CAR DRIVER Deterrents (Past 1 Month) 1 03/03/2023 4:20 PM CDT Freire, Donita C, ARMORED CAR DRIVER Reasons for Ideation (Past 1 Month) 4 03/03/2023 4:20 PM CDT Freire, Donita C, ARMORED CAR DRIVER * Suicidal Behavior Question Answer Date of Assessment Author Actual Attempt (Lifetime) Yes 03/03/2023 4:20 PM CDT Freire, Donita C, ARMORED CAR DRIVER Total Number of Actual Attempts (Lifetime) 2 03/03/2023 4:20 PM CDT Freire, Donita C, ARMORED CAR DRIVER Has subject engaged in non-suicidal self-injurious behavior? (Lifetime) No 03/03/2023 4:20 PM CDT Freire, Donita C, ARMORED CAR DRIVER Interrupted Attempts (Lifetime) No 03/03/2023 4:20 PM CDT Freire, Donita C, ARMORED CAR DRIVER Aborted or Self-Interrupted Attempt (Lifetime) No 03/03/2023 4:20 PM CDT Freire, Donita C, ARMORED CAR DRIVER Preparatory Acts or Behavior (Lifetime) No 03/03/2023 4:20 PM CDT Freire, Donita C, ARMORED CAR DRIVER Actual Attempt (Past 3 Months) No 03/03/2023 4:20 PM CDT Donita Freire LICSW documented as of this encounter Plan of Treatment Upcoming Encounters Date Type Department Care Team (Late st Contact Info) Description 04/18/2025 4:30 PM CDT Office Visit [facility] [address] [place] [phone] [place] [id number] [place] [address] documented as of this encounter Visit Diagnoses Not on filedocumented in this encounter Additional Health Concerns Assessment Noted Time PHQ-9 Depression Total Score: 5 03/02/20 23 7:28 PM CDT documented as of this encounter Care Teams Occupational Therapist Per Diem Relationship Specialty Start Date End Date [place]aseh[place]paricio [place] [id number] [place] [address] PCP - General 11/04/03 Lashell [place]paricio [place] [id number] [place] [address] Assigned PCP 11/20/14 Izabela Cody RN Personal Advocate & Liaison (PAL) Family Medicine 04/12/22 09/23/23 Carmen Kauffman MD ORTHOPAEDIC SURGERY [address] [place] [address] [id number] Assigned Musculoskeletal Provider 09/07/22 03/18/24 Anabelle Ram RN Personal Advocate & Liaison (PAL) Nurse 09/24/23 11/25/23 Kodi Moody MD [address] [address] Cardiovascular Disease 09/25/23 Kodi Moody MD [address] [place] [address] Assigned Heart and Vascular Provider 11/18/23 Donita Freire, [facility] [address] [place] [address] Assigned Behavioral Health Provider 11/18/23 09/18/24 documented as of this encounter
--- OUTSIDE RECORDS SUMMARY | 2024-12-14 09:32 | XMS_ITS | Encounter Summary ---
Author Organization [facility] Address [address] [place] [address]. [place] [address] Care Team Providers Care Ben Day Artist Name Role Phone Lashell Aparicio MD Primary Care Provider [phone] Lashell Aparicio MD Unavailable [phone] Kodi Moody MD Unavailable [phone] Kodi Moody MD Unavailable Reason for Visit * Reason Comments Medication Refill Encounter Details Date Type Department Care Team (Late st Contact Info) Description 11/06/[address] [address] [place]hell [place]paricio [place] [id number] [place] [address] Medication Refill Social History Tobacco Use [...] than three times a week 04/14/2024 Attends Church Services Not on file 04/14 Active Member [...] Answer Date Recorded PHQ-2 Score 2 04/14/2024 [facility] of Occupat ional Health - Occupational [...] in an abandoned building, in an overnight halfway, or couch-surfing.) Yes 04/14/2024 Are you worried [...] Sex Assigned at Female 06/26/2021 10:10 AM NURSING MANAGER Legal Sex Female 3:45 AM NURSING MANAGER Gender Identity Female 06/26/2021 10:10 AM NURSING MANAGER Sexual Orientation Straight 06/26/2021 10 :10 AM NURSING MANAGER 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 Not on file Not on file documented as of this encounter Miscellaneous Notes * Telephone Encounter - Shanti Seymour - 11/08/2024 2:22 PM CDT Lab scheduled for: 11/12/2024 SOFIYA Baugh * Telephone Encounter - Lashell Aparicio MD - 11/08/2024 12:19 PM CDT Overdue for recheck TSH documented in this encounter Plan of Treatment Upcoming Encounters Date Type Department Care Team (Late st Contact Info) Description 04/18/2025 4:30 PM CDT Office Visit [address] [phone] Lashell Aparicio [place] [id number] [place] [address] documented as of this encounter Visit Diagnoses Diagnosis Hypothyroidism, unspecified type documented in this encounter Additional Health Concerns Assessment Noted Time PHQ-9 Depression Total Score: 9 04/14/20 24 7:49 AM CDT documented as of this encounter Care Teams Ben Day Artist Relationship Specialty Start [place] [address] [place] [address] PCP - General 11/04/03 [place] [address] [place] [address] Assigned PCP 11/20/14 Kodi Moody MD [address] [address] Cardiovascular Disease 09/25/23 Kodi Moody MD [address] [address] Assigned Heart and Vascular Provider 11/18/23 documented as of this encounter
--- OUTSIDE RECORDS SUMMARY | 2024-12-14 09:32 | XMS_ITS | Encounter Summary ---
Author Organization [facility] Address [address] [place] [address]. [place] [address] Care Team Providers Care Rooming House Keeper Name Role Phone Lashell Aparicio MD Primary Care Provider [phone] Lashell Aparicio MD Unavailable [phone] Brittany Gibbons RN Unavailable Unavailable Hardik Beckham DPM Unavailable [phone] Izabela Cody RN Unavailable Unavailable Hardik Beckham DPM Unavailable [phone] Carmen Kauffman MD Unavailable Anabelle Ram RN Unavailable Unavailable Kodi Moody MD Unavailable Kodi Moody MD Unavailable Donita FreireSW Unavailable Reason for Visit * Reason Comments Medication Refill Encounter Details Date Type Department Care Team (Late st Contact Info) Description 01/12/2020 Refill [facility] [address] [place] [phone] [place] [address] [place], [place] [phone] Medication Refill Social History Tobacco Use Types [...] Sex Assigned at Female 06/26/2021 10:10 AM ADMINISTRATIVE MANAGER Legal Sex Female 3:45 AM ADMINISTRATIVE MANAGER Gender Identity Female 06/26/2021 10:10 AM ADMINISTRATIVE MANAGER Sexual Orientation Straight 06/26/2021 10 :10 AM ADMINISTRATIVE MANAGER 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 Not on file Not on file documented as of this encounter Miscellaneous Notes * Telephone Encounter - Jackie Lucas RN - 01/12/2020 5:50 PM CDT Medication refilled per [facility] Jackie Lucas RN documented in this encounter Plan of Treatment Upcoming Encounters Date Type Department Care Team (Late st Contact Info) Description 04/18/2025 4:30 PM CDT Office Visit [facility] [address] [place] [phone] [place] [address] [place] [address] documented as of this encounter Visit Diagnoses Diagnosis Eczema, unspecified type documented in this encounter Additional Health Concerns Assessment Noted Time PHQ-9 Depression Total Score: 19 020 9:01 AM CDT documented as of this encounter Care Teams Rooming House Keeper Relationship Specialty [place] [address] [place] [address] PCP - General 11/04/03 [place] [address] [place] [address] Assigned PCP 11/20/14 Brittany Gibbons, [place] Personal Advocate & Liaison (PAL) Nurse 11/29/20 08/02/21 Hardik Beckham DPM [address] [place] [address] Assigned Musculoskeletal Provider 07/08/21 08/30/22 Izabela Cody RN Personal Advocate & Liaison (PAL) Family Medicine 04/12/22 09/23/23 Hardik Beckham DPM [address] [place] [address] Assigned Surgical Provider 08/31/22 12/27/22 Carmen Kauffman MD ORTHOPAEDIC SURGERY [address] [place] [address] Assigned Musculoskeletal Provider 09/07/22 03/18/24 Anabelle Ram RN Personal Advocate & Liaison (PAL) Nurse 09/24/23 11/25/23 Kodi Moody MD [address] [address] Cardiovascular Disease 09/25/23 Kodi Moody MD [address] [address] Assigned Heart and Vascular Provider 11/18/23 Donita Freire, [facility] [address] [place] [address] Assigned Behavioral Health Provider 11/18/23 09/18/24 documented as of this encounter
--- OUTSIDE RECORDS SUMMARY | 2024-12-14 09:33 | XMS_ITS | Encounter Summary ---
Author Organization [facility] Address [address] [place] [address] Care Team Providers Care Semiconductor Testing Group Leader Name Role Phone Lashell Aparicio MD Primary Care Provider [phone] Lashell Aparicio MD Unavailable [phone] Lashell Aparicio MD Unavailable Brittany Gibbons RN Unavailable Unavailable Hardik Beckham DPM Unavailable [phone] Izabela Cody RN Unavailable Unavailable Hardik Beckham DPM Unavailable [phone] Carmen Kauffman MD Unavailable Anabelle Ram RN Unavailable Unavailable Kodi Moody MD Unavailable [phone] Kodi Moody MD Unavailable Donita Freire Unavailable Encounter Details Date Type Department Care Team (Late st Contact Info) Description 02/06/2006 [facility] [address] [place] [phone] [place] [address] [place] [address] 02-06-06 Social History Tobacco Use Types Packs/Day Years Used Date Smoking Tobacco: Former Cigarettes 1.5 35 0 07/28/1984 - 07/27/2019 Smokeless Tobacco: Never Alcohol Use Standard Drinks/Week Comments No 0 (1 standard drink = 0.6 oz pur e alcohol) stopped approx 01/2015 Comments No Sex and Gender Information Value Date Recorded Sex Assigned at Female 06/26/2021 10:10 AM RN MILITARY Legal Sex Female 3:45 AM RN MILITARY Gender Identity Female 06/26/2021 10:10 AM RN MILITARY Sexual Orientation Straight 06/26/2021 10 :10 AM RN MILITARY 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 Not on file Not on file documented as of this encounter Plan of Treatment Upcoming Encounters Date Type Department Care Team (Late st Contact Info) Description 04/18/2025 4:30 PM CDT Office Visit [facility] [address] [place] [phone] Lashell Aparicio MD [address] [place] [address] documented as of this encounter Visit Diagnoses Diagnosis ADMISSION NOTE- Primary documented in this encounter Care Teams Semiconductor Testing Group Leader Relationship Specialty Start Date [place] [id number] [place] [address] [phone] PCP - General 11/04/03 Lashell Aparicio MD [address] [place] [address] PCP - Assigned PCP 11/20/14 09/29/18 Lashell [place]paricio [place] [id number] [place] [address] [id number] Assigned PCP 11/20/14 Brittany Gibbons, [place] Personal Advocate & Liaison (PAL) Nurse 11/29/20 08/02/21 Hardik Beckham DPM [address] [place] [address] [address] [place] [address] Assigned Musculoskeletal Provider 07/08/21 08/30/22 Izabela Cody, RN Personal Advocate & Liaison (PAL) Family Medicine 04/12/22 09/23/23 Hardik Beckham DPM [address] [place] [address] Assigned Surgical Provider 08/31/22 12/27/22 Carmen Kauffman MD ORTHOPAEDIC SURGERY [address] [place] [address] Assigned Musculoskeletal Provider 09/07/22 03/18/24 Anabelle Ram RN Personal Advocate & Liaison (PAL) Nurse 09/24/23 11/25/23 Kodi Moody MD [address] [place] 05[address] Cardiovascular Disease 09/25/23 Kodi Moody MD [address] [address] Assigned Heart and Vascular Provider 11/18/23 Donita Freire, [facility] [address] [place] [address] Assigned Behavioral Health Provider 11/18/23 09/18/24 documented as of this encounter
--- OUTSIDE RECORDS SUMMARY | 2024-12-14 09:33 | XMS_ITS | Encounter Summary ---
Author Organization [facility] Address [address] [place] [address] Care Team Providers Care Blunger Loader Name Role Phone Lashell Aparicio MD Primary Care Provider [phone] Lashell Aparicio MD Unavailable [phone] Kodi Moody MD Unavailable Kodi Moody MD Unavailable Reason for Visit * Reason Onset Date Comments Drug Utilization Clarification Request Medical Condition Alert: Duloxetine HCL DR APONTE Encounter Details Date Type Department Care Team (Late st Contact Info) Description 12/08/[address] [phone] Lashell Aparicio MD [address] [place] [address] Drug Utilization Clarification Request (Medical Condition Alert: Duloxetine HCL DR APONTE) Social History Tobacco Use Types Packs/Day Years [...] than three times a week 04/14/2024 Attends [employer] Services Not on file 04/14 Active Member [...] Answer Date Recorded PHQ-2 Score 2 04/14/2024 [facility] of Occupat ional Health - Occupational Stress [...] Sex Assigned at Female 06/26/2021 10:10 AM VIDEO PRODUCTION ENGINEER Legal Sex Female 3:45 AM VIDEO PRODUCTION ENGINEER Gender Identity Female 06/26/2021 10:10 AM VIDEO PRODUCTION ENGINEER Sexual Orientation Straight 06/26/2021 10 :10 AM VIDEO PRODUCTION ENGINEER 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 Delilah San/SOFIYA documented in this encounter Plan of Treatment Upcoming Encounters Date Type Department Care Team (Late st Contact Info) Description 04/18/2025 4:30 PM CDT Office Visit [address] [phone] Lashell Aparicio MD [address] [place] [address] documented as of this encounter Visit Diagnoses Not on filedocumented in this encounter Additional Health Concerns Assessment Noted Time PHQ-9 Depression Total Score: 9 04/14/20 24 7:49 AM CDT documented as of this encounter Care Teams Blunger Loader Relationship Specialty [place] [address] [place], [place] [phone] PCP - General 11/04/03 [place] [address] [place] [address] Assigned PCP 11/20/14 Kodi Moody MD [address] [address] Cardiovascular Disease 09/25/23 Kodi Moody MD [address] [address] Assigned Heart and Vascular Provider 11/18/23 documented as of this encounter
--- OUTSIDE RECORDS SUMMARY | 2024-12-14 09:33 | XMS_ITS | Encounter Summary ---
Author Organization [facility] Address [address] [place] [address] Care Team Providers Care Tobacco Shaker Name Role Phone Lashell Aparicio MD Primary Care Provider [phone] Lashell Aparicio MD Unavailable [phone] Kodi Moody MD Unavailable Kodi Moody MD Unavailable Reason for Visit * Reason Onset Date Comments Patient Request 11/23/2024 Encounter Details Date Type Department Care Team (Late st Contact Info) Description 11/23/2024 [facility] Medical Advice [address] [phone] [place]hell [place] [id number] [place] [address] Patient Request Social History Tobacco Use Types Packs/Day Years [...] than three times a week 04/14/2024 Attends Alevism Services Not on file 04/14 Active Member [...] Answer Date Recorded PHQ-2 Score 2 04/14/2024 [facility] of Occupat ional Health - Occupational Stress [...] in an abandoned building, in an overnight [place] [facility], or couch-surfing.) Yes 04/14/2024 Are you worried [...] Sex Assigned at Female 06/26/2021 10:10 AM NUTRITION TECHNICIAN Legal Sex Female 3:45 AM NUTRITION TECHNICIAN Gender Identity Female 06/26/2021 10:10 AM NUTRITION TECHNICIAN Sexual Orientation Straight 06/26/2021 10 :10 AM NUTRITION TECHNICIAN 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 Sabrina Peña RN documented in this encounter Plan of Treatment Upcoming Encounters Date Type Department Care Team (Late st Contact Info) Description 04/18/2025 4:30 PM CDT Office Visit [facility] [address] [place] [phone] [place]icio [place] [id number] [place] [address] [phone] documented as of this encounter Visit Diagnoses Not on filedocumented in this encounter Additional Health Concerns Assessment Noted Time PHQ-9 Depression Total Score: 9 04/14/20 24 7:49 AM CDT documented as of this encounter Care Teams Tobacco Shaker Relationship Specialty Start Date [place] [id number] [place] [address] PCP - General 11/04/03 [place] [address] [place] [address] Assigned PCP 11/20/14 Kodi Moody MD [address] [address] Cardiovascular Disease 09/25/23 Kodi Moody MD [address] [address] Assigned Heart and Vascular Provider 11/18/23 documented as of this encounter
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
--- OUTSIDE RECORDS SUMMARY | 2024-12-14 09:33 | XMS_ITS | Encounter Summary ---
Author Organization [place] Address [address] [place] [address] Care Team Providers Care Rolling Mill Operator Name Role Phone Lashell Aparicio MD Primary Care Provider [phone] Lashell Aparicio MD Unavailable [phone] Kodi Moody MD Unavailable [phone] Kodi Moody MD Unavailable [phone] Reason for Visit * Reason Onset Date Comments Follow Up 11/23/2024 Encounter Details Date Type Department Care Team (Late st Contact Info) Description 11/23/2024 MyC Medical Advice [address] [address] [place] [id number] [place] [address] Follow Up Social History Tobacco Use Types Packs/Day Years [...] than three times a week 04/14/2024 Attends [employer] Services Not on file 04/14 Active Member [...] Answer Date Recorded PHQ-2 Score 2 04/14/2024 [facility] Occupat ional Health - Occupational Stress [...] in an abandoned building, in an overnight prison, or couch-surfing.) Yes 04/14/2024 Are you worried [...] Assigned at Female 06/26/2021 10:10 AM ADMINISTRATIVE EXECUTIVE Legal Sex Female 3:45 AM ADMINISTRATIVE EXECUTIVE Gender Identity Female 06/26/2021 10:10 AM ADMINISTRATIVE EXECUTIVE Sexual Orientation Straight 06/26/2021 10 :10 AM ADMINISTRATIVE 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 Delilah San/SOFIYA * Telephone Encounter - Sabrina Peña RN - 11/23/2024 5:35 PM CDT Images from the original note were not included. Dr. Aparicio- see mychart messages. Patient has been advised of need for visit. Patient responded with below. The only lab done 11/12/24 was repeat TSH for slightly up TSH. Please advise. [facility] John to [facility] - Primary Care (supporting Lashell Aparicio MD) 11/23/24 5:29 PM Can't afford the cost of the appointment unless it's for a yearly physical or an emergency. My deductible is $6,000. Nothing has changed for my health. * Telephone Encounter - Christina Briceno RN - 11/23/2024 5:24 PM CDT See my chart - patient advised to follow up in clinic for med check per Dr Thor Briceno, Registered Nurse [facility] * Telephone Encounter - Tank Kennedy RN - 11/23/2024 3:25 PM CDT Lashell Aparicio MD PABLO 11/22/24 8:00 AM Note Do we not have dosing info? Also she is overdue for med check - visit in March said follow up in 6 months - I do not see anything scheduled? If I give refills maybe no refills on that after Per OV from 04/14 with PCP: Return in about 6 months (around 10/12/2024) for follow-up per plan. Informed via [employer]. SUSIE Petersen RN [facility] documented in this encounter Plan of Treatment Upcoming Encounters Date Type Department Care Team (Late st Contact Info) Description 04/18/2025 4:30 PM CDT Office Visit [facility] [address] [place] [address] [place] [id number] [place] [address] documented as of this encounter Visit Diagnoses Not on filedocumented in this encounter Additional Health Concerns Assessment Noted Time PHQ-9 Depression Total Score: 9 04/14/20 24 7:49 AM CDT documented as of this encounter Care Teams Rolling Mill Operator Relationship Specialty Start [place] [address] [place], [place] [phone] PCP - General 11/04/03 [place] [address] [facility] [address] [address] Assigned PCP 11/20/14 Kodi Moody MD [address] [id number] Cardiovascular Disease 09/25/23 Kodi Moody MD [address] [id number] Assigned Heart and Vascular Provider 11/18/23 documented as of this encounter
--- OUTSIDE RECORDS SUMMARY | 2024-12-14 09:33 | XMS_ITS | Encounter Summary ---
Author Organization [place] Address [address] [place] [address] Care Team Providers Care Cement Car Dumper Name Role Phone Lashell Aparicio MD Primary Care Provider [phone] Lashell Aparicio MD Unavailable [phone] Lashell Aparicio MD Unavailable [phone] Brittany Gibbons RN Unavailable Unavailable Hardik Beckham DPM Unavailable [phone] Izabela Cody RN Unavailable Unavailable Hardik Beckham DPM Unavailable [phone] Carmen Kauffman MD Unavailable Anabelle Ram RN Unavailable Unavailable Kodi Moody MD Unavailable Kodi Moody MD Unavailable Donita Freire Unavailable [phone] Reason for Visit * Reason Onset Date Comments Refill Request 01/18/2018 levothyroxine (S YNTHROID/LEVOTHROID) 75 MCG tablet Encounter Details Date Type Department Care Team (Late st Contact Info) Description 01/18/[address] [phone] Lashell Aparicio MD [address] [place] [address] [phone] Refill Request (levothyroxine (SYNTHROID/LEVOTHROID) 75 MCG tablet) Social History Tobacco Use Types Packs/Day Years Used Date Smoking Tobacco: Every Day Cigarettes 0.3 18 Smokeless Tobacco: Never Comments:started in 1986 - d own to 4 daily Alcohol Use Standard Drinks/Week Comments No 0 (1 standard drink = 0.6 oz pur e alcohol) stopped approx 01/2015 Comments No Sex and Gender Information Value Date Recorded Sex Assigned at Female 06/26/2021 10:10 AM MEMBER OF PARLIAMENT Legal Sex Female 3:45 AM MEMBER OF PARLIAMENT Gender Identity Female 06/26/2021 10:10 AM MEMBER OF PARLIAMENT Sexual Orientation Straight 06/26/2021 10 :10 AM MEMBER OF PARLIAMENT 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 Also has other future labs from Dr. Aparicio ordered. Called patient and scheduled at 11:30 am tomorrow for lab. Has enough pills til results back. Sabrina Peña RN * Telephone Encounter - Theresa Moreno - 01/18/2018 9:30 AM CDT Requested Prescriptions Pending Prescriptions Disp Refills ??? levothyroxine (SYNTHROID/LEVOTHROID) 75 MCG tablet [Pharmacy Med Name: LEVOTHYROXINE 75 MCG TABLET] Last Written Prescription Date: 10/17/2017 Last Fill Quantity: 90 tablet, # refills: 0 Last office visit: 10/29/2017 with prescribing provider: Thor 90 tablet 0 Sig: TAKE 1 TABLET (75 MCG) BY MOUTH DAILY Thyroid Protocol Failed 01/18/2018 3:34 AM Failed - Normal TSH on file in past 12 months Recent Labs Lab Test 10/15/17 1000 TSH 5.43* Passed - Patient is 12 years or older Passed - Recent (12 mo) or future (30 days) visit within the authorizing provider's specialty Patient had office visit in the last 12 months or has a visit in the next 30 days with authorizing provider or within the authorizing provider's specialty. See Patient Info tab in inbasket, or Choose Columns in Meds & Orders section of the refill encounter. Passed - No active on record If patient is or has had a positive test, please check TSH. Passed - No positive test in past 12 months If patient is or has had a positive test, please check TSH. documented in this encounter Plan of Treatment Upcoming Encounters Date Type Department Care Team (Late st Contact Info) Description 04/18/2025 4:30 PM CDT Office Visit [address] [phone] Lashell Aparicio MD [address] [place] [address] documented as of this encounter Visit Diagnoses Diagnosis Fatigue, unspecified type Hypothyroidism, unspecified type documented in this encounter Additional Health Concerns Assessment Noted Time PHQ-9 Depression Total Score: 8 10/17/19 18 7:51 AM CDT documented as of this encounter Care Teams Cement Car Dumper Relationship Specialty Start Date End Date Lashell Aparicio MD [address] [place] [address] PCP - General 11/04/03 [place] [id number] [place] [address] PCP - Assigned PCP 11/20/14 09/29/18 Las[place]paricio [place] [id number] [place] [address] Assigned PCP 11/20/14 Brittany Gibbons, [place] Personal Advocate & Liaison (PAL) Nurse 11/29/20 08/02/21 Hardik Beckham DPM [address] [place] [address] Assigned Musculoskeletal Provider 07/08/21 08/30/22 Izabela Cody, RN Personal Advocate & Liaison (PAL) Family Medicine 04/12/22 09/23/23 Hardik Beckham DPM [email or web address] [place] [address] Assigned Surgical Provider 08/31/22 12/27/22 Carmen Kauffman MD ORTHOPAEDIC SURGERY [address] [place] [address] Assigned Musculoskeletal Provider 09/07/22 03/18/24 Anabelle Ram RN Personal Advocate & Liaison (PAL) Nurse 09/24/23 11/25/23 Kodi Moody MD [address] [address] Cardiovascular Disease 09/25/23 Kodi Moody MD [address] [address] Assigned Heart and Vascular Provider 11/18/23 Donita Freire, [facility] [address] [place] [address] Assigned Behavioral Health Provider 11/18/23 09/18/24 documented as of this encounter
--- OUTSIDE RECORDS SUMMARY | 2024-12-14 09:33 | XMS_ITS | Encounter Summary ---
Author Organization [place] Address [address] [place] [address] Care Team Providers Care Mold Breaker Name Role Phone Lashell Aparicio MD Primary Care Provider [phone] Lashell Aparicio MD Unavailable [phone] Lashell Aparicio MD Unavailable [phone] Brittany Gibbons RN Unavailable Unavailable Hardik Beckham DPM Unavailable [phone] Izabela Cody RN Unavailable Unavailable Hardik Beckham DPM Unavailable [phone] Carmen Kauffman MD Unavailable [phone] Anabelle Ram RN Unavailable Unavailable Kodi Moody MD Unavailable Kodi Moody MD Unavailable [phone] Donita Freire Unavailable [phone] Encounter Details Date Type Department Care Team (Late st Contact Info) Description 01/25/2004 [facility] [address] [place] [phone] [place] [address] [place] [address] OPERATIVE REPORT (Primary Dx) Social History Tobacco Use Types Packs/Day Years Used Date Smoking Tobacco: Former Cigarettes 1.5 35 0 07/28/1984 - 07/27/2019 Smokeless Tobacco: Never Alcohol Use Standard Drinks/Week Comments No 0 (1 standard drink = 0.6 oz pur e alcohol) stopped approx 01/2015 Comments No Sex and Gender Information Value Date Recorded Sex Assigned at Female 06/26/2021 10:10 AM EARLY CHILDHOOD EDUCATION SPECIALIST Legal Sex Female 3:45 AM EARLY CHILDHOOD EDUCATION SPECIALIST Gender Identity Female 06/26/2021 10:10 AM EARLY CHILDHOOD EDUCATION SPECIALIST Sexual Orientation Straight 06/26/2021 10 :10 AM EARLY CHILDHOOD EDUCATION 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 Not on file Not on file documented as of this encounter Plan of Treatment Upcoming Encounters Date Type Department Care Team (Late st Contact Info) Description 04/18/2025 4:30 PM CDT Office Visit [facility] [address] [place] [phone] Lashell [place]paricio [place] [id number] [place] [address] documented as of this encounter Visit Diagnoses Diagnosis OPERATIVE REPORT- Primary documented in this encounter Care Teams Mold Breaker Relationship Specialty Start Date End Date Lashell [place]paricio [place] [id number] [place] [address] [phone] PCP - General 11/04/03 Lashell Aparicio [place] [id number] [place] [address] PCP - Assigned PCP 11/20/14 09/29/18 Lashell [place]paricio [place] [id number] [place] [address] [phone] Assigned PCP 11/20/14 Brittany Gibbons, [place] Personal Advocate & Liaison (PAL) Nurse 11/29/20 08/02/21 Hardik Beckham DPM [address] [place] [address] Assigned Musculoskeletal Provider 07/08/21 08/30/22 Izabela Cody, RN Personal Advocate & Liaison (PAL) Family Medicine 04/12/22 09/23/23 Hardik Beckham DPM [address] [place] [address] Assigned Surgical Provider 08/31/22 12/27/22 Carmen Kauffman MD ORTHOPAEDIC SURGERY [address] [place] [address] Assigned Musculoskeletal Provider 09/07/22 03/18/24 Anabelle Ram RN Personal Advocate & Liaison (PAL) Nurse 09/24/23 11/25/23 Kodi Moody MD [address] [place] [address] Cardiovascular Disease 09/25/23 Kodi Moody MD [address] [address] Assigned Heart and Vascular Provider 11/18/23 Donita Freier, [facility] [address] [place] [address] Assigned Behavioral Health Provider 11/18/23 09/18/24 documented as of this encounter
--- OUTSIDE RECORDS SUMMARY | 2024-12-14 09:33 | XMS_ITS | Clinical Summary ---
Author Organization [facility] Address [address] [place] [address] Care Team Providers Care Pastry Wrapper Name Role Phone Lashell Aparicio MD Primary Care Provider [phone] Lashell Aparicio MD Unavailable [phone] Kodi Moody MD Unavailable [phone] Kodi Moody MD Unavailable [phone] Allergies Active Allergy Reactions Criticality Noted Date Comments Flecainide Palpitations Low 03/04/2017 Medications * This document contains information received from the source organization and may not represent a complete record from that organization. 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 Do not operate a vehicle after taking this medication 30 tablet 04/14/20 24 Active tiZANidine (ZANAFLEX) 4 MG tabletIndicatio ns:Fatigue, unspecified type,Muscle pain TAKE 1 TABLET BY MOUTH THREE TIMES A DAY NEEDED FOR MUSCLE SPASM 270 tablet 1 04/14/20 24 Active valACYclovir (VALTREX) 1000 mg tabletIndicatio ns:Herpes simplex virus infection Take 1 tablet (1,000 mg) by mouth 3 times daily as needed (flare). 21 tablet 6 04/14/20 24 Active polyethylene glycol (GOLYTELY) 236 g suspensionIndic ations:Special screening for malignant neoplasms, colon One day prior to procedure at 3 pm fill container with water. Cover and shake until mixed well. Drink an 8 oz. glass of mixture every 10-15 minutes until the 1st half of the jug is gone. Place the remainder of the Golytely in the refrigerator. At 8 pm, drink the 2nd half of the jug of Golytely bowel prep. Drink an 8 oz. glass of Golytely every 10-15 minutes until the container of Golytely is gone. 4000 mL 05/14/20 24 Active polyethylene glycol (MIRALAX) 17 GM/Dose powderIndicatio ns:Special screening for malignant neoplasms, colon Take 1 capful (17g) of Miralax mixed with 8 oz of a clear liquid twice daily for 7 days prior to your scheduled procedure. 238 g 05/14/20 24 Active bisacodyl (DULCOLAX) 5 MG EC tabletIndicatio ns:Special screening for malignant neoplasms, colon One day prior to procedure at 3PM take two (2) tablets. If your procedure is BEFORE 11AM, take two (2) tablets at 11PM. If your procedure is AFTER 11AM, day of procedure take (2) tablets at 6AM. 4 tablet 05/14/20 24 Active cyanocobalamin (CYANOCOBALAMIN ) 1000 mcg/mL injectionIndica tions:S/P gastric bypass Inject 1 mL (1,000 mcg) into the muscle every 30 days. 4 mL 11/24/19 25 Active DULoxetine (CYMBALTA) 60 MG capsuleIndicati ons:Major depressive disorder, recurrent episode, moderate (H),Fibromyalgi a Take 1 capsule (60 mg) by mouth daily. 90 capsule 11/24/19 25 Active estradiol (ESTRACE) 0.5 MG tabletIndicatio ns:Menopausal syndrome (hot flashes) Take 1 tablet (0.5 mg) by mouth daily. 90 tablet 11/24/19 25 Active gabapentin (NEURONTIN) 300 MG capsuleIndicati ons:Fibromyalgi a Take 3 capsules (900 mg) by mouth at bedtime. 270 capsule 11/24/19 25 Active levothyroxine (SYNTHROID/LEVO THROID) 50 MCG tabletIndicatio ns:Hypothyroidi sm, unspecified type Take 1 tablet (50 mcg) by mouth daily. 90 tablet 11/24/19 25 Active rosuvastatin (CRESTOR) 20 MG tabletIndicatio ns:Elevated coronary artery calcium score,Prediabet es Take 1 tablet (20 mg) by mouth daily. 90 tablet 11/24/19 25 Active traZODone (DESYREL) 150 MG tabletIndicatio ns:Moderate major depression (H) Take 0.5 tablets (75 mg) by mouth at bedtime. 45 tablet 11/24/19 25 Active DULoxetine (CYMBALTA) 60 MG capsuleIndicati ons:Major depressive disorder, recurrent episode, moderate (H),Fibromyalgi a Take 1 capsule (60 mg) by mouth daily. 90 capsule 04/14/20 025 Discontinued gabapentin (NEURONTIN) 300 MG capsuleIndicati ons:Fibromyalgi a Take 3 capsules (900 mg) by mouth at bedtime. 270 capsule 4 04/14/20 025 Discontinued traZODone (DESYREL) 150 MG tabletIndicatio ns:Moderate major depression (H) TAKE 1/2 TABLET(75 MG) BY MOUTH AT BEDTIME 45 tablet 04/14/20 24 025 Discontinued estradiol (ESTRACE) 0.5 MG tabletIndicatio ns:Menopausal syndrome (hot flashes) TAKE 1 TABLET(0.5 MG) BY MOUTH DAILY 90 tablet 4 06/07/20 24 025 Discontinued cyanocobalamin (CYANOCOBALAMIN ) 1000 mcg/mL injectionIndica tions:S/P gastric bypass INJECT 1ML INTO THE MUSCLE ONCE EVERY 30 DAYS AT BEGINNING OF MONTH. 4 mL 2 06/07/20 24 025 Discontinued rosuvastatin (CRESTOR) 20 MG tabletIndicatio ns:Elevated coronary artery calcium score,Prediabet es Take 1 tablet (20 mg) by mouth daily. 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 12/12/2023 Chest pain, unspecified type 12/12/2023 History of tobacco abuse 10/24/2023 Major depressive disorder, recurrent episode, mo derate 10/30/2021 Hyperopia of both eyes with astigmatism and pres byopia 03/01/2020 Tendonitis 11/25/2018 Overview (02/03/2019): bicepital and supraspinatous worse on the left but both sides S/P gastric bypass 11/21/2018 Fibromyalgia 03/18/2018 Herpes simplex virus infection 01/22/2017 Morbid obesity 01/22/2017 Degenerative tear of left medial meniscus 2016 Bariatric surgery status 01/24/2016 Other iron deficiency anemia 01/24/2016 Bilateral edema of lower extremity 09/30/2015 Hypocalcemia 12/15/2014 Vitamin D deficiency disease 02/10/2013 CTS (carpal tunnel syndrome) 07/09/2011 Iron deficiency anemia 09/17/2010 CARDIOVASCULAR SCREENING; LDL GOAL LESS THAN 160 05/27/2010 Seasonal allergic rhinitis 04/19/2010 Anxiety 01/04/2009 B-complex deficiency 08/11/2006 Overview (04/27/2015): Problem list name updated by automated process. Provider to review Family history of diabetes mellitus 01/29/2006 Moderate major depression 09/03/2005 Hypothyroidism 02/27/2004 Overview (04/27/2015): Problem list name updated by automated process. Provider to review Resolved Problems Problem Noted Date Diagnosed Date Resolved Date Atrial fibrillation with RVR 07/15/2017 11/21/2018 Intermittent atrial fibrillation 05/05/2017 11/21/2018 Paroxysmal atrial fibrillation 05/05/2017 11/21/2018 Neck pain 01/20/2017 04/14/2017 Chronic left-sided low back pain without sciatica 01/20/2017 04/14/2017 Atrial flutter with rapid ve ntricular response 10/03/2016 11/21/2018 Acute pain of left knee 03/26/2016 08/3 Status post surgery 03/26/2016 03/26/20 16 Intermittent atrial flutter 03/06/2016 11/21/2018 Chronic pain of left knee 03/06/2016 Atrial flutter, unspecified type 07/28/2015 11/21/2018 Vitamin D deficiency 08/14/2012 013 Depressive disorder, not elsewhere classified 01/30/20 06 09/03/2010 Personal history of tobacco use, presenting hazards to health 01/23/2005 04/14/2024 Encounters Date Type Department Care Team Description 12/08/[address] [phone] Lashell Aparicio MD Drug Utilization Clarification Request (Medical Condition Alert: Duloxetine HCL DR CAPS) 11/23/2024 [facility] Medical Advice [address] [phone] Lashell Aparicio MD Patient Request 11/23/2024 [facility] Medical Advice [address] [phone] Lashell Aparicio MD Follow Up 11/19/[address] [phone] Lashell Aparicio MD New Med Request 11/19/2024 [facility] Medical Advice [address] [phone] Lashell Aparicio MD Patient Request (Change of pharmacy) 11/12/2024 9:00 AM CDT Lab [facility] [address] [place] [phone] Hypothyroidism, unspecified type 11/12/2024 Travel 11/08/2024 Refill [facility] [address] [place] [address] Lashell Aparicio MD Medication Refill 11/06/2024 Refill [facility] [address] [place] [address] Lashell Aparicio MD Medication Refill 10/18/2024 Refill [facility] [address] [facility] [address] [place] [phone] Kodi Moody MD Refill Request (rosuvastatin) 10/18/2024 Telephone [facility] [address] [facility] [address] [place] [address] Sophie Patel RN from Last 3 Months Immunizations Immunization Administration Dates Next Due COVID-19 12+ (Pfizer) 04/14/2024,04/30/2023 COVID-19 MONOVALENT 12+ (Pfizer) 08/04/2021,10/26,10/21/2020 Influenza (IIV3) PF 08/12/2012 Influenza Vaccine 18-64 (Flublok) 04/30/2023,08/2021,04/25/2021 Influenza Vaccine >6 months,quad, PF 12/2018,05/05/2017,10/03/2016,2013 Influenza Vaccine Trivalent (FluBlok) 04/14/2024 Pneumococcal 20 valent Conju gate (Prevnar 20) 04/14/2024 Pneumococcal 23 valent 01/21/2020 TDAP (Adacel,Boostrix) 01/31/2021,09/03/2010 TDAP Vaccine (Adacel) 09/03/2010 Zoster recombinant adjuvante d (Shingrix) 01/27/2019,11/21/2018 Family History Medical History Relation Comments Lipids Brother and low blood pr essure Other Cancer Brother liver cancer Anxiety Disorder Father C.A.D. Father bypass in his 50 's, SD at 78 Diabetes Father borderline - t controlled Heart Disease Father Heart Surgery Father bypass Hypertension Father Lipids Father Myocardial Infarction Father from Alcohol/Drug Maternal Aunt Diabetes Maternal Grandfather Neurologic Disorder Maternal Grandfather epileps y Arrhythmia Mother Connective Tissue Disorder Mother raine r and brother with keratoderma Depression Mother Heart Disease Mother Heart Failure Mother Heart Surgery Mother cardioversion Neurologic Disorder Mother has had 2 se izures Pacemaker Mother Rectal Cancer Mother Psychotic Disorder Other cousin with s chizophrenia Heart Disease Paternal Uncle heart disease Family History Negative Son Colon Cancer No family hx of Relation Status Comments Brother Alive Father Maternal Aunt Maternal Grandfather Maternal Grandmother Mother Alive Other Paternal Grandfather Paternal Grandmother Paternal Uncle Son Alive Social History Tobacco Use Types Packs/Day Years Used Date Smoking Tobacco: Former Cigarettes 1.5 35 0 07/28/1984 - 07/27/2019 Smokeless Tobacco: Never Tobacco Cessation:Counseling Given: Not Answered Alcohol Use Standard Drinks/Week Comments No 0 [...] Answer Date Recorded PHQ-2 Score 2 04/14/2024 [facility] [place] [facility] Occupat [facility] - Occupational Stress [...] in an abandoned building, in an overnight fdc, or couch-surfing.) Yes 04/14/2024 Are you worried [...] Sex Assigned at Female 06/26/2021 10:10 AM AEROBICS TEACHER Legal Sex Female 3:45 AM AEROBICS TEACHER Gender Identity Female 06/26/2021 10:10 AM AEROBICS TEACHER Sexual Orientation Straight 06/26/2021 10 :10 AM AEROBICS 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 Not on file Not on file Last Filed Vital Signs Vital Sign Reading Time Taken Comments Blood Pressure 120/79 04/14/2024 2:53 PM CDT Pulse 76 04/14/2024 2:53 PM CDT Temperature 36.9 C (98.4 F) 04/14/2024 2:53 PM CDT Respiratory Rate 16 04/14/2024 2:53 PM CDT Oxygen Saturation 95% 04/14/2024 2:53 PM CDT Inhaled Oxygen Concentration - - Weight 119.4 kg (263 lb 3.2 oz) 04/14/2024 2:53 PM CDT Height 165.1 cm (5' 5) 04/14/2024 2:53 PM CDT Body Mass Index 43.8 04/14/2024 2:53 PM CDT Plan of Treatment Upcoming Encounters Date Type Department Care Team (Late st Contact Info) Description 04/18/2025 4:30 PM CDT Office Visit [facility] [id number] [place] [phone] Lashell Aparicio MD [address] [place] [phone] Health Maintenance Due Date Last Done Comments CT COLONOGRAPHY 1965 FIT 1965 FLEX SIG 1965 sDNA (Cologuard) 1965 MAMMO SCREENING 12/02/2020 12/02/2018 LUNG CANCER SCREENING 06/25/2023 06/25/2022 COLONOSCOPY 01/02/2024 01/01/2019 COLORECTAL CANCER SCREENING 01/02/2024 PHQ-9 10/12/2024 04/14/2024, 0801/2023, 02/13/2023, Additional history exists ANNUAL REVIEW OF HM ORDERS 04/14/202504/14, 04/30/2023, 05/29/2022, Additional history exists LIPID 04/14/2025 04/14/2024, 1010/2022, 05/29/2022, Additional history exists YEARLY PREVENTIVE VISIT 04/14/2025 04/14/20 24, 04/30/2023, 05/29/2022, Additional history exists TSH W/FREE T4 REFLEX 11/12/2025 11/12/2024, 04/14/2024, 04/14/2024, Additional history exists DIABETES SCREENING 04/14/2027 04/14/2024, 0 04/14/2024, 12/12/2023, Additional history exists ADVANCE CARE PLANNING 04/14/2029 04/14/2024, 021 DTAP/TDAP/TD IMMUNIZATION (4 - Td or Tdap) 01/31/2031 01/31/2021, 09/03/2010, 09/03/2010 PAP Discontinued 09/03/2010, 06/0 07/2005, 04/07/2003, Additional history exists DEPRESSION ACTION PLAN Completed 7, 12/20/2015, 12/14/2014, Additional history exists ZOSTER IMMUNIZATION Completed 01/27/2019, 9 HEPATITIS C SCREENING Completed 01/31/2021 HIV SCREENING Completed 01/31/2021 COVID-19 Vaccine Completed 04/14/2024, 10/2022, 08/04/2021, Additional history exists INFLUENZA VACCINE Completed 04/14/2024, , 05/29/2022, Additional history exists Pneumococcal Vaccine: 50+ Years Completed 04/14/2024, 01/21/2020 HEPATITIS B IMMUNIZATION Discontinued HPV IMMUNIZATION Aged Out No longer e ligible based on patient's age to complete this topic MENINGITIS IMMUNIZATION Aged Out No l onger eligible based on patient's age to complete this topic Procedures Procedure Name Priority Date/Time Associated Diagnosis Comments TSH Routine 11/12/2024 9:04 AM CDT Hypothyroidism, unspecified type BASIC METABOLIC PANEL Routine 04/14/2024 3:58 PM CDT Coronary artery disease involving kobuk coronary artery of kobuk heart without angina pectoris Dyspnea on exertion Mixed hyperlipidemia Anxiety Morbid obesity (H) LIPID PROFILE Routine 04/14/2024 3:58 PM CDT Coronary artery disease involving kobuk coronary artery of kobuk heart without angina pectoris Dyspnea on exertion Mixed hyperlipidemia Anxiety Morbid obesity (H) CT CHEST LUNG CANCER SCREEN LOW DOSE WITHOUT Routine 06/25/2022 3:11 PM AEROBICS TEACHER Personal history of tobacco use HIV ANTIGEN ANTIBODY COMBO Routine 01/31/2021 9:51 AM CDT Screening for HIV (human immunodeficiency virus) HEPATITIS C SCREEN REFLEX TO HCV RNA QUANT AND GENOTYPE Routine 01/31/2021 9:51 AM CDT Need for hepatitis C screening test COLONOSCOPY Routine 01/01/2019 11:00 AM CDT MA SCREENING DIGITAL BILATERAL Routine 12/02/2018 10:03 AM CDT Visit for screening mammogram PAP IMAGED THIN LAYER SCREEN Routine 09/03/2010 12:00 AM AEROBICS TEACHER Routine general medical examination at a [facility] care facility from Last 3 Months or Most Recently Relevant to Health Maintenance Results * TSH (11/12/2024 9:04 AM CDT) TSH 2.52 0.30 - 4.20 uIU/mL 11/12/2024 6:46 PM CDT [facility] Blood BLOOD SPECIMEN / Unknown Venipuncture / Unknown 11/12/2024 9:04 AM CDT 11/12/2024 9:04 AM CDT us Lashell Aparicio MD LAB - BLOOD ORDERABLES Final Re sult [facility] [address] [facility], [address] [place] [address] * Lipid Profile (04/14/2024 3:58 PM CDT) Cholesterol 130 <200 mg/dL 04/15/2024 4:07 PM CDT [facility] Triglycerides 88 <150 mg/dL 04/15/2024 4:07 PM CDT [facility] Direct Measure HDL 64 >=50 mg/dL 2023 4:07 PM CDT [facility] LDL Cholesterol Calculated 48 <100 mg/dL 04/15/2024 4:07 PM CDT [facility] Non HDL Cholesterol 66 <130 mg/dL 04/15/2024 4:07 PM CDT [facility] Patient Fasting > 8hrs? No 04/15/2024 4:07 PM CDT [facility] Blood BLOOD SPECIMEN / Unknown Venipuncture / Unknown 04/14/2024 3:58 PM CDT 04/14/2024 3:58 PM CDT Narrative [facility] - 04/15/2024 4:07 PM CDT Cholesterol Desirable: < 200 mg/dL Borderline High: 200 - 239 mg/dL High: >= 240 mg/dL Triglycerides Normal: < 150 mg/dL Borderline High: 150 - 199 mg/dL High: 200-499 mg/dL Very High: >= 500 mg/dL Direct Measure HDL Female: >= 50 mg/dL Male: >= 40 mg/dL LDL Cholesterol Desirable: < 100 mg/dL Above Desirable: 100 - 129 mg/dL Borderline High: 130 - 159 mg/dL High: 160 - 189 mg/dL Very High: >= 190 mg/dL Non HDL Cholesterol Desirable: < 130 mg/dL Above Desirable: 130 - 159 mg/dL Borderline High: 160 - 189 mg/dL High: 190 - 219 mg/dL Very High: >= 220 mg/dL Kodi Moody MD LAB - BLOOD ORDERABLES Final Result [facility] [place] [facility] [address] [facility], [address] [phone] * Basic metabolic panel (04/14/2024 3:58 PM CDT) Sodium 141 135 - 145 mmol/L 04/15/2024 4:07 PM CDT [facility] Potassium 4.2 3.4 - 5.3 mmol/L 04/15/2024 4:07 PM CDT [facility] Chloride 103 98 - 107 mmol/L 04/15/2024 4:07 PM CDT [facility] Carbon Dioxide (CO2) 27 22 - 29 mmol/L 04/15/2024 4:07 PM CDT [facility] Anion Gap 11 7 - 15 mmol/L 04/15/2024 4:07 PM CDT [facility] Urea Nitrogen 8.9 6.0 - 20.0 mg/dL 04/15/2024 4:07 PM CDT [facility] Creatinine 0.76 0.51 - 0.95 mg/dL 04/15/2024 4:07 PM CDT [facility] GFR Estimate >90 >60 mL/min/1.7 3m2 04/15/2024 4:07 PM CDT [facility] Comment:eGFR calculated usin 2020 CKD-EPI equation. Calcium 9.2 8.8 - 10.4 mg/dL 04/15/2024 4:07 PM CDT [facility] Comment:Reference intervals for this test were updated on 02/10/2024 to reflect our healthy population more accurately. There may be differences in the flagging of prior results with similar values performed with this method. Those prior results can be interpreted in the context of the updated reference intervals. Glucose 88 70 - 99 mg/dL 04/15/2024 4:07 PM CDT [facility] Patient Fasting > 8hrs? No 04/15/2024 4:07 PM CDT [facility] Blood BLOOD SPECIMEN / Unknown Venipuncture / Unknown 04/14/2024 3:58 PM CDT 04/14/2024 3:58 PM CDT Kodi Moody MD LAB - BLOOD ORDERABLES Final Result [facility] [place] [facility] [address] [facility], [address] [phone] * CT Chest Lung Cancer Scrn Low Dose wo (06/25/2022 3:11 PM AEROBICS TEACHER) Anatomical Region Laterality Modality Chest, SUBRAD CT BODY, UMP CT CHEST, RAD CT Computed Tomography Impressions 06/25/2022 3:41 PM AEROBICS TEACHER IMPRESSION: 1. ACR Assessment Category: Lung-RADS Category 2. Benign appearance or behavior. Recommendation: Continue annual screening, if clinically relevant (please order exam code IMG 2290). 2. Significant Incidental Finding(s): Category S: Yes. Moderate coronary artery calcification. Download the LungRADS Assessment Categories table at this site: http://www.acr.org/Quality-Safety/Resources/LungRADS BEV ALVARENGA MD Narrative 06/25/2022 3:[address] CHEST LUNG CANCER SCREEN LOW DOSE WITHOUT CONTRAST June 25, 2022 3:11 PM HISTORY: Lung cancer screening. History of smoking. TECHNIQUE: Scans obtained from the apices through the diaphragm without IV contrast. Low dose CT chest technique was utilized. Radiation dose for this scan was reduced using automated exposure control, adjustment of the mA and/or kV according to patient size, or iterative reconstruction technique. COMPARISON: Cardiac CT performed 07/23/2017. FINDINGS: LUNGS: A 0.4 cm left upper lobe pulmonary nodule (series 6 image 112) is unchanged. 2 pulmonary nodules in the right lung measures 0.4 cm each, and are also unchanged (series 6 images 122 and 138). CORONARY ARTERY CALCIFICATION: Moderate. ADDITIONAL FINDINGS: No pleural or pericardial effusions. No enlarged lymph nodes in the chest. Postoperative changes involving the stomach. Noncontrast views of the upper abdomen are limited by the low dose technique. Degenerative changes in the thoracic spine. Lashell Aparicio MD [facility] CT ORDERABLES Edited Result - Final * HIV Antigen Antibody Combo (01/31/2021 9:51 AM CDT) Pathologist [facility] HIV Antigen Antibody Combo Nonreactive NR^Nonrea ctive 01/31/2021 4:03 PM CDT [facility] Comment:HIV-1 p24 Ag & HIV-1 /HIV-2 Ab Not Detected Blood 01/31/2021 9:51 AM CDT 01/31/2021 9:52 AM CDT Lashell Aparicio MD LAB - BLOOD ORDERABLES Final Re sult [facility] [address] [place] [address] * Hepatitis C Screen Reflex to HCV RNA Quant and Genotype (01/31/2021 9:51 AM CDT) Hepatitis C Antibody Nonreactive NR^Nonre active 01/31/2021 3:51 PM CDT [facility] Comment: Assay performance characteristics have not been established for newborns, infants, and children Blood 01/31/2021 9:51 AM CDT 01/31/2021 9:52 AM CDT us Lashell Aparicio MD LAB - BLOOD ORDERABLES Final Re sult [facility] [address] [place] [address] * COLONOSCOPY (01/01/2019 11:00 AM CDT) COLONOSCOPY [facility] Patient Name: Karsten Boyce Madalyn Procedure Date: 01/01/2019 11:00 AM Date of : 1965 Admit Type: Outpatient Age: 53 Gender: Female Attending MD: Lm Browning MD Total Sedation Time: 16_minutes continuous bedside 1:1 Instrument Name: 218 - Pediatric Colonoscope Procedure: Colonoscopy Indications: Screening for colorectal malignant neoplasm Providers: Lm Browning MD (Doctor) Referring MD: Lashell Ellison MD (Referring MD) Medicines: Midazolam 2 mg IV, Fentanyl 100 micrograms IV Complications: No immediate complications. Procedure: Pre-Anesthesia Assessment: - Prior to the procedure, a History and Physical was performed, and patient medications and allergies were reviewed. The patient is competent. The risks and benefits of the procedure and the sedation options and risks were discussed with the patient. All questions were answered and informed consent was obtained. Patient identification and proposed procedure were verified in the procedure room. Mental Status Examination: alert and oriented. Airway Examination: normal oropharyngeal airway and neck mobility. Respiratory Examination: clear to auscultation. CV Examination: normal. Prophylactic Antibiotics: The patient does not require prophylactic antibiotics. Prior Anticoagulants: The patient has taken no previous anticoagulant or antiplatelet agents. ASA Grade Assessment: II - A patient with mild systemic disease. After reviewing the risks and benefits, the patient was deemed in satisfactory condition to undergo the procedure. The anesthesia plan was to use moderate sedation / analgesia (conscious sedation). Immediately prior to administration of medications, the patient was re-assessed for adequacy to receive sedatives. The heart rate, respiratory rate, oxygen saturations, blood pressure, adequacy of pulmonary ventilation, and response to care were monitored throughout the procedure. The physical status of the patient was re-assessed after the procedure. After obtaining informed consent, the colonoscope was passed under direct vision. Throughout the procedure, the patient's blood pressure, pulse, and oxygen saturations were monitored continuously. The Olympus, Pediatric Colonoscope, Model # [id number]-[id number], [place]ora # [id number], SN # [id number] was introduced through the anus and advanced to the cecum, identified by appendiceal orifice and ileocecal valve. The colonoscopy was performed without difficulty. The patient tolerated the procedure well. The quality of the bowel preparation was good. Findings: The perianal and digital rectal examinations were normal. A 4 mm polyp was found in the sigmoid colon. The polyp was sessile. The polyp was removed with a cold snare. Resection and retrieval were complete. Verification of patient identification for the specimen was done. Estimated blood loss was minimal. The exam was otherwise without abnormality on direct and retroflexion views. Impression: - One 4 mm polyp in the sigmoid colon, removed with a cold snare. Resected and retrieved. - The examination was otherwise normal on direct and retroflexion views. Recommendation: - Repeat colonoscopy date to be determined after pending pathology results are reviewed for surveillance. Procedure Code(s): --- Professional --- 88160, Colonoscopy, flexible; with removal of tumor(s), polyp(s), or other lesion(s) by snare technique Diagnosis Code(s): --- Professional --- D12.5, Benign neoplasm of sigmoid colon CPT copyright 2017 [employer]. All rights reserved. The codes documented in this report are preliminary and upon label coder review may be revised to meet current compliance requirements. Electronically signed by Lm Browning MD __ Lm Browning MD 01/01/2019 11:31:27 AM I was physically present for the entire viewing portion of the exam. Lm Browning MD Number of Addenda: 0 Note Initiated On: 01/01/2019 11:00 AM Procedure Date: 01/01/2019 11:00:21 AM Scope Withdrawal Time: 0 hours 8 minutes 34 seconds Total Procedure Duration: 0 hours 15 minutes 31 seconds Estimated Blood Loss: Scope In: 11:06:06 AM Scope Out: 11:21:37 AM RADIOLOGY RESULTS 01/01/2019 11:0 0 AM CDT us Lashell Aparicio MD PROCEDURES Final Result RADIOLOGY RESULTS * MA SCREENING DIGITAL BILAT - Future (s+30) (12/02/2018 10:03 AM CDT) Anatomical Region Laterality Modality Breast Bilateral Mammography Impressions 12/02/2018 1:15 PM CDT IMPRESSION: BI-RADS CATEGORY: 1 - NEGATIVE. RECOMMENDED FOLLOW-UP: Annual Mammography. The patient will be notified of the results. OREN ROBERTS MD Narrative 12/02/2018 1:15 PM CDT Examination: Bilateral digital screening mammography with computer aided detection, 12/02/2018 10:03 AM. Comparison: None History: No current breast concerns. BREAST DENSITY: Scattered fibroglandular densities. COMMENTS: No suspicious finding. Procedure Note Oren Roberts MD - 12/02/2018 Examination: Bilateral digital screening mammography with computer aided detection, 12/02/2018 10:03 AM. Comparison: None History: No current breast concerns. BREAST DENSITY: Scattered fibroglandular densities. COMMENTS: No suspicious finding. IMPRESSION: BI-RADS CATEGORY: 1 - NEGATIVE. RECOMMENDED FOLLOW-UP: Annual Mammography. The patient will be notified of the results. OREN ROBERTS MD us Lashell Aparicio MD IM MAMMOGRAPHY ORDERABLES Marva l Result * PAP imaged thin layer screen (09/03/2010 12:00 AM AEROBICS TEACHER) PAP NIL JOHNNY Vincent Report Patient Name: KARSTEN MAI MR#: [id number] Specimen #: [id number] Collected: 09/03/2010 Received: 09/04/2010 Reported: 09/05/2010 13:12 Ordering Phy(s): LASHELL ELLISON SPECIMEN/STAIN PROCESS: Pap imaged thin layer prep screening (Surepath, FocalPoint with guided screening) Pap-Cyto x 1, Reflex HPV x 1 SOURCE: Cervical, endocervical Pap imaged thin layer prep screening (Surepath, FocalPoint with guided screening) SPECIMEN ADEQUACY: Satisfactory for evaluation. -Transformation zone component absent. CYTOLOGIC INTERPRETATION: Negative for Intraepithelial Lesion or Malignancy Electronically signed out by: YNES Tavera (ASCP) Processed and screened at [facility], [facility] CLINICAL HISTORY: LMP: 12/12/2004 Previous normal pap Date of Last Pap: 12/26/2005, Papanicolaou Test Limitations: Cervical cytology is a screening test with limited sensitivity; regular screening is critical for cancer prevention; Pap tests are primarily effective for the diagnosis/preventi on of squamous cell carcinoma, not adenocarcinomas or other cancers. TESTING LAB LOCATION: [address] [address] COLLECTION SITE: Client: [facility] Location: [facility] (R) COPATH Cytologic material (specimen) 09/03/2010 09/04/2010 1:35 PM AEROBICS TEACHER Lashell Aparicio MD LAB - OPTIME CLINICAL SPECIMEN Final Result COPATH from Last 3 Months or Most Recently Relevant to Health Maintenance Insurance [employer] [facility] [employer] Advance Directives For more information, please contact: [phone] * Full Code (Latest Code Status on File) Date Activated Date Inactivated Comments 07/15/2017 3:42 PM 01/01/2019 10:30 AM * Full Code Date Activated Date Inactivated Comments 07/15/2017 12:51 AM 07/15/2017 3:42 PM * Full Code Date Activated Date Inactivated Comments 10/03/2016 9:09 AM 07/15/2017 12:51 AM * Full Code Date Activated Date Inactivated Comments 10/02/2016 5:15 PM 10/03/2016 9:09 AM Care Teams Pastry Wrapper Relationship Specialty [place] [address] [place], [place] [id number] PCP - General 11/04/03 [place] [address] [place] [address] Assigned PCP 11/20/14 Kodi Moody MD [address] [id number] Cardiovascular Disease 09/25/23 Kodi Moody MD [address] [address] Assigned Heart and Vascular Provider 11/18/23
--- OUTSIDE RECORDS SUMMARY | 2024-12-14 09:33 | XMS_ITS | Encounter Summary ---
Author Organization [facility] Address [address] [place] [address]. [place] [address] Care Team Providers Care Catheterization Laboratory Technician Name Role Phone Lashell Aparicio MD Primary Care Provider Lashell Aparicio MD Unavailable [phone] Hardik Beckham DPM Unavailable [phone] Izabela Cody RN Unavailable Unavailable Hardik Beckham DPM Unavailable [phone] Carmen Kauffman MD Unavailable Anabelle Ram RN Unavailable Unavailable Kodi Moody MD Unavailable Kodi Moody MD Unavailable [phone] Donita FreireSW Unavailable Reason for Visit * Reason Comments Medication Refill Encounter Details Date Type Department Care Team (Late st Contact Info) Description 08/26/2021 Refill [facility] [id number] [place] [phone] [place] [id number] [place] [id number] Medication Refill Social History Tobacco Use Types Packs/Day Years Used Date Smoking Tobacco: Every Day Cigarettes 1 18 Smokeless Tobacco: Never Alcohol Use Standard Drinks/Week Comments No 0 (1 standard drink = 0.6 oz pur e alcohol) stopped approx 01/2015 PHQ-2 Answer Date Recorded PHQ-2 Score 1 01/31/2021 Comments No Sex and Gender Information Value Date Recorded Sex Assigned at Female 06/26/2021 10:10 AM SUPERVISOR FISH BAIT PROCESSING Legal Sex Female 3:45 AM SUPERVISOR FISH BAIT PROCESSING Gender Identity Female 06/26/2021 10:10 AM SUPERVISOR FISH BAIT PROCESSING Sexual Orientation Straight 06/26/2021 10 :10 AM SUPERVISOR FISH BAIT 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 Not on file Not on file documented as of this encounter Miscellaneous Notes * Telephone Encounter - Jackie Lucas RN - 08/28/2021 10:52 AM CST Medication refilled per [facility] protocol Jackie Lucas RN [employer] PROCESS[employer] documented in this encounter Plan of Treatment Upcoming Encounters Date Type Department Care Team (Late st Contact Info) Description 04/18/2025 4:30 PM CDT Office Visit [facility] [id number] [place] [phone] [place] [id number] [place] [phone] documented as of this encounter Visit Diagnoses Diagnosis Abnormal TSH Other abnormal clinical finding documented in this encounter Additional Health Concerns Assessment Noted Time PHQ-9 Depression Total Score: 5 02/01/20 21 7:03 AM CDT documented as of this encounter Care Teams Catheterization Laboratory Technician Relationship Specialty Start [place] [address] [place], [place] [phone] PCP - General 11/04/03 [place] [address] [place] [address] Assigned PCP 11/20/14 Hardik Beckham DPM [id number] [facility] [address] [place] [address] Assigned Musculoskeletal Provider 07/08/21 08/30/22 Izabela Cody RN Personal Advocate & Liaison (PAL) Family Medicine 04/12/22 09/23/23 Hradik Beckham DPM [address] [place] [address] Assigned Surgical Provider 08/31/22 12/27/22 Carmen Kauffman MD ORTHOPAEDIC SURGERY [address] [place] [address] Assigned Musculoskeletal Provider 09/07/22 03/18/24 Anabelle Ram RN Personal Advocate & Liaison (PAL) Nurse 09/24/23 11/25/23 Kodi Moody MD [address] [address] Cardiovascular Disease 09/25/23 Kodi Moody MD [address] [address] Assigned Heart and Vascular Provider 11/18/23 Donita Freire, [facility] [address] [place] [address] Assigned Behavioral Health Provider 11/18/23 09/18/24 documented as of this encounter
--- OUTSIDE RECORDS SUMMARY | 2024-12-14 09:33 | XMS_ITS | Encounter Summary ---
Author Organization [place] Address [address] [place] [address]. [place] [address] Care Team Providers Care Precinct Captain Name Role Phone Lashell Aparicio MD Primary Care Provider [phone] Lashell Aparicio MD Unavailable [phone] Kodi Moody MD Unavailable [phone] Kodi Moody MD Unavailable [phone] Reason for Visit * Reason Comments New Med Request Encounter Details Date Type Department Care Team (Late st Contact Info) Description 11/19/[address] [phone] [place]icio [place] [id number] [place] [address] New Med Request Social History Tobacco Use Types Packs/Day [...] than three times a week 04/14/2024 Attends [employer] Not on file 04/14 Active Member [...] Recorded PHQ-2 Score 2 04/14/2024 [facility] - Occupational [...] in an abandoned building, in an overnight correction, or couch-surfing.) Yes 04/14/2024 Are you worried [...] Assigned at Female 06/26/2021 10:10 AM RN SPINE Legal Sex Female 3:45 AM RN SPINE Gender Identity Female 06/26/2021 10:10 AM RN SPINE Sexual Orientation Straight 06/26/2021 10 :10 AM RN SPINE 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 Delilah San/SOFIYA * Telephone Encounter - Shanti Seymour - 11/23/2024 1:37 PM CDT LVM for patient to call the clinic at [phone] Medication has been refilled but due for a visit. SOFIYA Baugh * Telephone Encounter - Sabrina Peña RN - 11/23/2024 11:30 AM CDT Routing to care team to schedule. Sabrina Peña RN * Telephone Encounter - Lashell Aparicio MD - 11/23/2024 11:01 AM CDT Thank you so much - all were filled * Telephone Encounter - Sabrina Peña RN - 11/23/2024 10:48 AM CDT T'd up medications. Route to care team to schedule after reviewing medications. Sabrina Peña RN * Telephone Encounter - Lashell Aparicio MD - 11/22/2024 7:59 AM CDT Do we not have dosing info? Also she is overdue for med check - visit in March said follow up in 6 months - I do not see anything scheduled? If I give refills maybe no refills on that after documented in this encounter Plan of Treatment Upcoming Encounters Date Type Department Care Team (Late st Contact Info) Description 04/18/2025 4:30 PM CDT Office Visit [address] [phone] Lashell Aparicio MD [address] [place] [address] documented as of this encounter Visit Diagnoses Diagnosis S/P gastric bypass Bariatric surgery status Major depressive disorder, recurrent episode, moderate (H) Major depressive disorder, recurrent episode, moderate Fibromyalgia Mylagia and myositis, unspecified Menopausal syndrome (hot flashes) Symptomatic menopausal or female climacteric states Hypothyroidism, unspecified type Elevated coronary artery calcium score Prediabetes Other abnormal glucose Moderate major depression (H) Major depressive disorder, single episode, moderate documented in this encounter Additional Health Concerns Assessment Noted Time PHQ-9 Depression Total Score: 9 04/14/20 24 7:49 AM CDT documented as of this encounter Care Teams Precinct Captain Relationship Specialty [place] [address] [facility] [place] [place] [address] PCP - General 11/04/03 [place] [address] [place] [address] Assigned PCP 11/20/14 Kodi Moody MD [address] [place] [address] Cardiovascular Disease 09/25/23 Kodi Moody MD [address] [place] [address] Assigned Heart and Vascular Provider 11/18/23 documented as of this encounter
== END 2024-12-14 09:29 | disposition home or self-care (01) ==
LOC: ED 09:28
PROVIDERS: Emergency Provider Family Medicine
DX: S61.217A Laceration without foreign body of left little finger without damage to nail, initial encounter (principal); W26.8XXA Contact with other sharp object(s), not elsewhere classified, initial encounter; Y99.0 Civilian activity done for income or pay
CPT/HCPCS: 12001; 99283